=== PATIENT | male | born 1950 | race African-American/Black ===

== ENCOUNTER → 2016-04-24 | Outpatient (CLI) | payer OTHER ==
[2016-04-24 12:39] LABS: Basophils # (auto) 0 uL; Basophils % (auto) 0.5 % (0.0-2.0); Eosinophils # (auto) 0.2 uL; Eosinophils % (auto) 3.9 % (0.0-7.0); Hematocrit 44.8 % (41.0-53.0); Hemoglobin 14.8 g/dL (13.5-17.5); Lymphocytes # (auto) 1.5 uL; Lymphocytes % (auto) 32.7 % (10.0-50.0); Mean Corpuscular Hemoglobin 28.6 pg (28.0-32.0); Mean Corpuscular Volume 86.7 fL (80.0-100.0); Mean Platelet Volume 7.3 fL (7.4-10.4); Monocytes # (auto) 0.4 uL; Monocytes % (auto) 7.9 % (0.0-12.0); Neutrophils # (auto) 2.6 uL; Platelet Count (auto) 286 10^3/uL (140-450); White Blood Cell 4.7 10^3/uL (4.4-10.8)
[2016-04-24 12:59] LABS: BUN/Creatinine Ratio 9.2; Calcium 9.1 mg/dL (8.5-10.1); Potassium 3.9 mmol/L (3.5-5.1)
[2016-04-24 13:10] LABS: INR 1.11 (0.9-1.15); Prothrombin Time 11.4 sec (9.37-12.3)
[2016-04-24 13:28] LABS: Urine Bilirubin Negative (Negative); Urine Blood Negative /uL (Negative); Urine Color Yellow (Yellow); Urine Glucose Normal (Normal); Urine Ketone Negative (Negative); Urine Nitrite Negative (Negative); Urine RBC 3 /hpf (0 - 3); Urine Urobilinogen Normal (Negative); Urine pH 7.5 (5.0-8.0)
== END | disposition home or self-care (01) ==
LOC: LAB 12:20
DX: Z01.818 Encounter for other preprocedural examination (principal)
CPT/HCPCS: 36415; 80048; 81001; 85025; 85610; 85730

== ENCOUNTER → 2016-06-15 | Outpatient (CLI) | payer OTHER ==
[2016-06-15 11:51] LABS: Urine Bilirubin Negative (Negative); Urine Blood Negative /uL (Negative); Urine Color Yellow (Yellow); Urine Glucose Normal (Normal); Urine Ketone Negative (Negative); Urine Nitrite Negative (Negative); Urine RBC None Seen /hpf (0 - 3); Urine Urobilinogen Normal (Negative)
[2016-06-15 11:57] LABS: Basophils # (auto) 0 uL; Basophils % (auto) 0.7 % (0.0-2.0); Eosinophils # (auto) 0.1 uL; Eosinophils % (auto) 3.6 % (0.0-7.0); Hematocrit 42.2 % (41.0-53.0); Hemoglobin 13.6 g/dL (13.5-17.5); Lymphocytes # (auto) 1.3 uL; Lymphocytes % (auto) 33.6 % (10.0-50.0); Mean Corpuscular Hemoglobin 27.5 pg (28.0-32.0); Mean Corpuscular Hgb Conc. 32.3 g/dL (32.0-36.0); Mean Platelet Volume 7.6 fL (7.4-10.4); Monocytes # (auto) 0.3 uL; Monocytes % (auto) 7.9 % (0.0-12.0); Neutrophils % (auto) 54.2 % (37.0-80.0); Platelet Count (auto) 256 10^3/uL (140-450); Red Cell Distribution Width 14.1 % (11.6-16.0); White Blood Cell 3.8 10^3/uL (4.4-10.8)
[2016-06-15 12:37] LABS: Albumin 3.7 g/dL (3.4-5.0); BUN/Creatinine Ratio 11.8; Bilirubin, Total 0.6 mg/dL (0.2-1.0); Calcium 9.4 mg/dL (8.5-10.1); Potassium 3.5 mmol/L (3.5-5.1); Total Protein 7.4 g/dL (6.4-8.2)
== END | disposition home or self-care (01) ==
LOC: LAB 11:18
DX: E11.42 Type 2 diabetes mellitus with diabetic polyneuropathy (principal); Z12.11 Encounter for screening for malignant neoplasm of colon; Z12.5 Encounter for screening for malignant neoplasm of prostate
CPT/HCPCS: 36415; 80053; 80061; 81001; 82043; 83036; 84153; 84443; 85025

== ENCOUNTER → 2016-09-21 | Outpatient (CLI) | payer OTHER | END | disposition home or self-care (01) | LOC: LAB 10:00 | PROVIDERS: ATTEND Physician Assistant | DX: L82.1 Other seborrheic keratosis (principal) ==

== ENCOUNTER → 2017-02-26 | Outpatient (CLI) | payer OTHER ==
[2017-02-26 13:50] LABS: Basophils # (auto) 0 uL; Basophils % (auto) 0.9 % (0.0-2.0); Eosinophils # (auto) 0.1 uL; Eosinophils % (auto) 3.1 % (0.0-7.0); Hematocrit 46.7 % (41.0-53.0); Hemoglobin 15.5 g/dL (13.5-17.5); Lymphocytes # (auto) 1.2 uL; Lymphocytes % (auto) 27.2 % (10.0-50.0); Mean Corpuscular Hemoglobin 29.4 pg (28.0-32.0); Mean Corpuscular Hgb Conc. 33.3 g/dL (32.0-36.0); Mean Corpuscular Volume 88.5 fL (80.0-100.0); Monocytes # (auto) 0.4 uL; Monocytes % (auto) 8.7 % (0.0-12.0); Neutrophils # (auto) 2.7 uL; Neutrophils % (auto) 60.1 % (37.0-80.0); Nucleated Red Blood Cells % 0.1 %; Platelet Count (auto) 296 10^3/uL (140-450); Red Blood Cells 5.28 10^6/uL (4.5-5.90); Red Cell Distribution Width 13.8 % (11.8-14.3); White Blood Cell 4.4 10^3/uL (4.4-10.8)
[2017-02-26 13:59] LABS: Urine Bacteria FEW /hpf (None Seen); Urine Blood Negative /uL (Negative); Urine Mucus FEW (None Seen); Urine Specific Gravity 1.031 (1.001-1.035); Urine WBC 2 /hpf (0 - 3)
[2017-02-26 15:59] LABS: Albumin 4.2 g/dL (3.4-5.0); BUN/Creatinine Ratio 13.6; Bilirubin, Total 0.6 mg/dL (0.2-1.0); Calcium 9.7 mg/dL (8.5-10.1); Total Protein 8.2 g/dL (6.4-8.2)
[2017-02-26 22:24] LABS: Potassium 4.1 mmol/L (3.5-5.1)
== END | disposition home or self-care (01) ==
LOC: LAB 13:18
PROVIDERS: ATTEND Family Medicine
DX: E11.9 Type 2 diabetes mellitus without complications (principal); E78.5 Hyperlipidemia, unspecified
CPT/HCPCS: 36415; 80053; 80061; 81001; 82043; 83036; 84153; 84443; 85025

== ENCOUNTER → 2017-04-19 | Outpatient (CLI) | payer OTHER ==
[2017-04-19 11:28] LABS: Basophils # (auto) 0 uL; Basophils % (auto) 0.7 % (0.0-2.0); Eosinophils # (auto) 0.1 uL; Eosinophils % (auto) 2.3 % (0.0-7.0); Hematocrit 46.1 % (41.0-53.0); Hemoglobin 15.4 g/dL (13.5-17.5); Lymphocytes # (auto) 1.1 uL; Lymphocytes % (auto) 28.9 % (10.0-50.0); Mean Corpuscular Hemoglobin 29.3 pg (28.0-32.0); Mean Corpuscular Hgb Conc. 33.4 g/dL (32.0-36.0); Mean Corpuscular Volume 87.9 fL (80.0-100.0); Monocytes # (auto) 0.3 uL; Neutrophils # (auto) 2.2 uL; Neutrophils % (auto) 59.1 % (37.0-80.0); Nucleated Red Blood Cells % 0.1 %; Platelet Count (auto) 228 10^3/uL (140-450); Red Blood Cells 5.25 10^6/uL (4.5-5.90); Red Cell Distribution Width 13.9 % (11.8-14.3); White Blood Cell 3.7 10^3/uL (4.4-10.8)
== END | disposition home or self-care (01) ==
LOC: LAB 10:44
PROVIDERS: ATTEND Psychiatry & Neurology Neurology
DX: E61.1 Iron deficiency (principal)
CPT/HCPCS: 36415; 82728; 83540; 85025

== ENCOUNTER → 2017-07-01 | Outpatient (CLI) | payer OTHER ==
[2017-07-01 16:52] LABS: Amphetamine Screen, Urine NEGATIVE (NEGATIVE); Barbiturate Scree,Urine NEGATIVE (NEGATIVE); Benzodiazephine Screen, Urine NEGATIVE (NEGATIVE); Cannabinoid Screen, Urine POSITIVE (NEGATIVE); Cocaine Screen, Urine NEGATIVE (NEGATIVE); Opiate Scree,Urine POSITIVE (NEGATIVE); Phencyclidine Screen, Urine NEGATIVE (NEGATIVE)
== END | disposition home or self-care (01) ==
LOC: LAB 15:02
PROVIDERS: ATTEND Psychiatry & Neurology Neurology
DX: G89.4 Chronic pain syndrome (principal); E78.5 Hyperlipidemia, unspecified; E11.9 Type 2 diabetes mellitus without complications; I10 Essential (primary) hypertension
CPT/HCPCS: 80307

== ENCOUNTER → 2017-08-11 | Outpatient (CLI) | payer OTHER ==
[2017-08-11 13:28] LABS: Basophils # (auto) 0 uL; Basophils % (auto) 1.4 % (0.0-2.0); Eosinophils # (auto) 0.1 uL; Eosinophils % (auto) 3.8 % (0.0-7.0); Hemoglobin 14.3 g/dL (13.5-17.5); Lymphocytes # (auto) 1.1 uL; Lymphocytes % (auto) 32.5 % (10.0-50.0); Mean Corpuscular Hemoglobin 29.2 pg (28.0-32.0); Mean Corpuscular Volume 86.1 fL (80.0-100.0); Monocytes # (auto) 0.4 uL; Monocytes % (auto) 10.7 % (0.0-12.0); Neutrophils # (auto) 1.8 uL; Neutrophils % (auto) 51.6 % (37.0-80.0); Nucleated Red Blood Cells % 0.1 %; Platelet Count (auto) 240 10^3/uL (140-450); Red Blood Cells 4.88 10^6/uL (4.5-5.90); Red Cell Distribution Width 13.6 % (11.8-14.3); White Blood Cell 3.4 10^3/uL (4.4-10.8)
[2017-08-11 13:54] LABS: Urine Bacteria NONE SEEN /hpf (None Seen); Urine Blood Negative /uL (Negative); Urine Mucus FEW (None Seen); Urine Specific Gravity 1.029 (1.001-1.035); Urine WBC 1 /hpf (0 - 3)
[2017-08-11 14:02] LABS: Albumin 3.7 g/dL (3.4-5.0); BUN/Creatinine Ratio 12.6; Bilirubin, Total 0.4 mg/dL (0.2-1.0); Calcium 9.1 mg/dL (8.5-10.1); Potassium 3.7 mmol/L (3.5-5.1); Total Protein 7.5 g/dL (6.4-8.2)
== END | disposition home or self-care (01) ==
LOC: LAB 13:00
PROVIDERS: ATTEND Nurse Practitioner
DX: E11.21 Type 2 diabetes mellitus with diabetic nephropathy (principal); E78.5 Hyperlipidemia, unspecified
CPT/HCPCS: 36415; 80053; 80061; 81001; 82043; 83036; 85025

== ENCOUNTER → 2017-11-19 | Outpatient (CLI) | payer OTHER ==
[2017-11-19 13:02] LABS: Basophils # (auto) 0 uL; Eosinophils # (auto) 0.2 uL; Eosinophils % (auto) 5.5 % (0.0-7.0); Hematocrit 43.6 % (41.0-53.0); Hemoglobin 14.8 g/dL (13.5-17.5); Lymphocytes # (auto) 1.3 uL; Mean Corpuscular Hemoglobin 29.8 pg (28.0-32.0); Mean Corpuscular Volume 87.8 fL (80.0-100.0); Monocytes # (auto) 0.4 uL; Monocytes % (auto) 9.6 % (0.0-12.0); Neutrophils # (auto) 2.1 uL; Neutrophils % (auto) 51.9 % (37.0-80.0); Nucleated Red Blood Cells % 0.1 %; Platelet Count (auto) 215 10^3/uL (140-450); Red Blood Cells 4.97 10^6/uL (4.5-5.90); Red Cell Distribution Width 13.7 % (11.8-14.3); White Blood Cell 4.1 10^3/uL (4.4-10.8)
[2017-11-19 17:57] LABS: Chloride 107 mmol/L (98-107); Potassium 3.8 mmol/L (3.5-5.1); Sodium 143 mmol/L (136-145)
[2017-11-19 18:02] LABS: Albumin 3.5 g/dL (3.4-5.0); Anion Gap 11 (5-15); BUN/Creatinine Ratio 8.8; Blood Urea Nitrogen 7 mg/dL (7-18); Calcium 8.3 mg/dL (8.5-10.1); Carbon Dioxide 25 mmol/L (21-32); GFR African American 123 mL/min; GFR Non-African American 102 mL/min; Glucose 107 mg/dL (74-106)
[2017-11-19 18:22] LABS: Alanine Aminotransferase 22 U/L (16-61); Alkaline Phosphatase 96 U/L (45-117); Aspartate Aminotransferase 13 U/L (15-37); Bilirubin, Total 0.5 mg/dL (0.2-1.0); Total Protein 7.3 g/dL (6.4-8.2)
[2017-11-22 19:07] LABS: Cholesterol 88 mg/dL (< 200)
[2017-11-22 19:08] LABS: HDL Cholesterol 41 mg/dL (40-59); LDL Cholesterol 45 mg/dL (< 100); Triglycerides 84 mg/dL (< 150)
== END | disposition home or self-care (01) ==
LOC: LAB 12:13
PROVIDERS: ATTEND Nurse Practitioner
DX: E11.9 Type 2 diabetes mellitus without complications (principal); E78.5 Hyperlipidemia, unspecified; I10 Essential (primary) hypertension
CPT/HCPCS: 36415; 80053; 80061; 83036; 85025

== ENCOUNTER → 2018-02-14 | Outpatient (CLI) | payer OTHER, MEDICARE ==
[2018-02-14 12:45] LABS: Basophils # (auto) 0 uL; Basophils % (auto) 0.7 % (0.0-2.0); Eosinophils # (auto) 0.1 uL; Eosinophils % (auto) 2.4 % (0.0-7.0); Hematocrit 48.2 % (41.0-53.0); Lymphocytes # (auto) 1.1 uL; Lymphocytes % (auto) 28.6 % (10.0-50.0); Mean Corpuscular Hemoglobin 29.3 pg (28.0-32.0); Mean Corpuscular Hgb Conc. 33.3 g/dL (32.0-36.0); Mean Corpuscular Volume 88.1 fL (80.0-100.0); Monocytes # (auto) 0.3 uL; Monocytes % (auto) 8.2 % (0.0-12.0); Neutrophils # (auto) 2.3 uL; Neutrophils % (auto) 60.1 % (37.0-80.0); Platelet Count (auto) 267 10^3/uL (140-450); Red Blood Cells 5.47 10^6/uL (4.5-5.90); Red Cell Distribution Width 13.8 % (11.8-14.3); White Blood Cell 3.8 10^3/uL (4.4-10.8)
[2018-02-14 13:07] LABS: Albumin 4.1 g/dL (3.4-5.0); Calcium 9.7 mg/dL (8.5-10.1); Potassium 4.3 mmol/L (3.5-5.1)
[2018-02-14 13:12] LABS: BUN/Creatinine Ratio 8.9; Bilirubin, Total 0.6 mg/dL (0.2-1.0); Total Protein 8.4 g/dL (6.4-8.2); Urine Bacteria NONE SEEN /hpf (None Seen); Urine Blood Negative /uL (Negative); Urine WBC 1 /hpf (0 - 3)
== END | disposition home or self-care (01) ==
LOC: LAB 11:52
PROVIDERS: ATTEND Nurse Practitioner
DX: E78.5 Hyperlipidemia, unspecified (principal); I10 Essential (primary) hypertension; E11.9 Type 2 diabetes mellitus without complications; M19.90 Unspecified osteoarthritis, unspecified site
CPT/HCPCS: 36415; 80053; 81001; 82043; 82306; 83036; 84153; 85025

== ENCOUNTER → 2018-06-17 | Outpatient (CLI) | payer OTHER, MEDICARE ==
[2018-06-17 14:26] LABS: Urine Bacteria NONE SEEN /hpf (None Seen); Urine Blood Negative /uL (Negative); Urine Mucus FEW (None Seen); Urine Specific Gravity 1.019 (1.001-1.035); Urine WBC 1 /hpf (0 - 3)
[2018-06-17 14:27] LABS: Basophils # (auto) 0 uL; Basophils % (auto) 0.8 % (0.0-2.0); Eosinophils # (auto) 0.1 uL; Eosinophils % (auto) 1.9 % (0.0-7.0); Hematocrit 42.8 % (41.0-53.0); Hemoglobin 14.3 g/dL (13.5-17.5); Lymphocytes # (auto) 1.2 uL; Lymphocytes % (auto) 29.2 % (10.0-50.0); Mean Corpuscular Hemoglobin 29.5 pg (28.0-32.0); Mean Corpuscular Hgb Conc. 33.4 g/dL (32.0-36.0); Mean Corpuscular Volume 88.2 fL (80.0-100.0); Monocytes # (auto) 0.4 uL; Monocytes % (auto) 9.8 % (0.0-12.0); Neutrophils # (auto) 2.3 uL; Neutrophils % (auto) 58.3 % (37.0-80.0); Nucleated Red Blood Cells % 0.1 %; Platelet Count (auto) 224 10^3/uL (140-450); Red Blood Cells 4.85 10^6/uL (4.5-5.90); Red Cell Distribution Width 14.2 % (11.8-14.3)
[2018-06-17 15:02] LABS: Calcium 9.1 mg/dL (8.5-10.1); Potassium 3.4 mmol/L (3.5-5.1)
[2018-06-17 15:04] LABS: BUN/Creatinine Ratio 7.9
[2018-06-17 15:05] LABS: Bilirubin, Total 0.5 mg/dL (0.2-1.0); Total Protein 7.5 g/dL (6.4-8.2)
== END | disposition home or self-care (01) ==
LOC: LAB 13:42
PROVIDERS: ATTEND Nurse Practitioner
DX: E78.5 Hyperlipidemia, unspecified (principal); E11.9 Type 2 diabetes mellitus without complications
CPT/HCPCS: 36415; 80053; 80061; 81001; 82043; 82306; 82607; 83036; 84443; 85025

== ENCOUNTER → 2018-08-08 | Outpatient (CLI) | payer OTHER, MEDICARE | END | disposition home or self-care (01) | LOC: LAB 15:28 | PROVIDERS: ATTEND Nurse Practitioner | DX: E11.9 Type 2 diabetes mellitus without complications (principal); E78.5 Hyperlipidemia, unspecified | CPT/HCPCS: 82043 ==

== ENCOUNTER → 2018-08-16 | Outpatient (CLI) | payer OTHER, MEDICARE | END | disposition home or self-care (01) | LOC: LAB 16:26 | PROVIDERS: ATTEND Nurse Practitioner | DX: E11.9 Type 2 diabetes mellitus without complications (principal); E78.5 Hyperlipidemia, unspecified | CPT/HCPCS: 82270 ==

== ENCOUNTER → 2019-01-23 | Day surgery (SDC) | payer OTHER ==
[2019-01-19 15:01] LABS: Urine Bacteria None Seen /hpf (None Seen)
[2019-01-19 15:57] LABS: INR 1.05 (0.9-1.15); Partial Thromboplastin Time 30.3 sec (23.64-32.05)
[2019-01-19 16:03] LABS: Basophils # (auto) 0 uL; Basophils % (auto) 0.5 % (0.0-2.0); Eosinophils # (auto) 0.2 uL; Eosinophils % (auto) 3.8 % (0.0-7.0); Hematocrit 44.8 % (41.0-53.0); Hemoglobin 14.7 g/dL (13.5-17.5); Lymphocytes # (auto) 1.2 uL; Lymphocytes % (auto) 29.3 % (10.0-50.0); Mean Corpuscular Hemoglobin 28.9 pg (28.0-32.0); Mean Corpuscular Hgb Conc. 32.9 g/dL (32.0-36.0); Mean Corpuscular Volume 87.9 fL (80.0-100.0); Monocytes # (auto) 0.4 uL; Monocytes % (auto) 9.5 % (0.0-12.0); Neutrophils # (auto) 2.3 uL; Neutrophils % (auto) 56.9 % (37.0-80.0); Nucleated Red Blood Cells % 0.1 %; Platelet Count (auto) 274 10^3/uL (140-450); Red Cell Distribution Width 14.5 % (11.8-14.3)
[2019-01-19 16:07] LABS: Albumin 3.9 g/dL (3.4-5.0); Calcium 9.2 mg/dL (8.5-10.1); Potassium 3.9 mmol/L (3.5-5.1)
[2019-01-19 16:10] LABS: Bilirubin, Total 0.5 mg/dL (0.2-1.0); Total Protein 7.6 g/dL (6.4-8.2)
[2019-01-19 17:27] LABS: Urine Specific Gravity 1.012 (1.001-1.035)
[2019-01-19 17:28] LABS: Urine Blood Negative /uL (Negative)
[~2019-01-23] VITALS: Ht 175.3 cm; Wt 79.4 kg
[~2019-01-23] MED LIST: ACCU-CHEK COMFORT CURVE STRIP VI ONE; AMLO10TA13 PO; ASPI-404 PO; ATEN100T PO; ATOR1TAB PO; BACL10TA PO; ERGO1CAP23 PO; ESMOLOL HCL 10 ML IV ONE; FURO1TAB31 PO; GABA300C10 PO; GLYCOPYRROLATE 0.2 MG/ML 1ML VIAL ONE; HYDR-4833 PO; HYDR50TA15 PO; LACT10SO70 PO; LIDOCAINE 2% (LOCAL ANESTH.) PF 5ml SDV ONE; LISI40TA PO; METF-372 PO; METO-169 PO; METOCLOPRAMIDE HCL 5MG/ml INJ 2ml VIAL ONE; MIDAZOLAM HCL 1MG/1ML-2 ML VIAL ONE; PIOG1TAB36 PO; POTA1TAB61 PO; PROPOFOL 10 MG/ML 20 ML IV ONE; TAMS0.4C36 PO; TRIA75TA55 PO; diphenhdrAMINE HCL 50 MG/1 ML VL ONE
[2019-01-23 11:44] VITALS: BP 159/95
== END | disposition home or self-care (01) ==
LOC: GI 08:54
PROVIDERS: ATTEND Internal Medicine Gastroenterology
DX: Z12.11 Encounter for screening for malignant neoplasm of colon (principal); D12.5 Benign neoplasm of sigmoid colon; K64.8 Other hemorrhoids; K57.30 Diverticulosis of large intestine without perforation or abscess without bleeding; I10 Essential (primary) hypertension; K21.9 Gastro-esophageal reflux disease without esophagitis; E11.40 Type 2 diabetes mellitus with diabetic neuropathy, unspecified; F17.210 Nicotine dependence, cigarettes, uncomplicated; Z79.84 Long term (current) use of oral hypoglycemic drugs; Z79.82 Long term (current) use of aspirin; Z79.899 Other long term (current) drug therapy
CPT/HCPCS: 36415; 45380; 45385; 80053; 81001; 82962; 85025; 85610; 85730; 88305; 93005; J1200; J2001; J2250; J2704; J2765; J7030

== ENCOUNTER → 2019-03-06 | Outpatient (CLI) | payer OTHER ==
[~2019-03-06] MED LIST changes: -ACCU-CHEK COMFORT CURVE STRIP VI ONE; -ESMOLOL HCL 10 ML IV ONE; -GLYCOPYRROLATE 0.2 MG/ML 1ML VIAL ONE; -LIDOCAINE 2% (LOCAL ANESTH.) PF 5ml SDV ONE; -METOCLOPRAMIDE HCL 5MG/ml INJ 2ml VIAL ONE; -MIDAZOLAM HCL 1MG/1ML-2 ML VIAL ONE; -PROPOFOL 10 MG/ML 20 ML IV ONE; -diphenhdrAMINE HCL 50 MG/1 ML VL ONE
[2019-03-06 11:35] LABS: Basophils # (auto) 0 uL; Basophils % (auto) 0.6 % (0.0-2.0); Eosinophils # (auto) 0.2 uL; Hematocrit 43.5 % (41.0-53.0); Hemoglobin 14.3 g/dL (13.5-17.5); Lymphocytes # (auto) 0.9 uL; Lymphocytes % (auto) 21.4 % (10.0-50.0); Mean Corpuscular Hemoglobin 28.9 pg (28.0-32.0); Mean Corpuscular Hgb Conc. 32.9 g/dL (32.0-36.0); Mean Corpuscular Volume 87.9 fL (80.0-100.0); Monocytes # (auto) 0.4 uL; Monocytes % (auto) 9.4 % (0.0-12.0); Neutrophils # (auto) 2.6 uL; Neutrophils % (auto) 64.6 % (37.0-80.0); Platelet Count (auto) 258 10^3/uL (140-450); Red Blood Cells 4.94 10^6/uL (4.5-5.90); Red Cell Distribution Width 14.2 % (11.8-14.3); White Blood Cell 4.1 10^3/uL (4.4-10.8)
[2019-03-06 11:42] LABS: Urine Bacteria NONE SEEN /hpf (None Seen); Urine Blood Negative /uL (Negative); Urine Mucus FEW (None Seen); Urine Specific Gravity 1.023 (1.001-1.035); Urine WBC 1 /hpf (0 - 3)
[2019-03-06 12:11] LABS: Potassium 3.7 mmol/L (3.5-5.1)
[2019-03-06 12:18] LABS: Free T4 (Free Thyroxine) 1.27 ng/dL (0.89-1.76); Prostate Specific Antigen 1.83 ng/mL (0.0-4.0)
[2019-03-06 12:21] LABS: Albumin 3.9 g/dL (3.4-5.0); BUN/Creatinine Ratio 14.9; Bilirubin, Total 0.4 mg/dL (0.2-1.0); Calcium 9.3 mg/dL (8.5-10.1); Total Protein 8.1 g/dL (6.4-8.2)
== END | disposition home or self-care (01) ==
LOC: LAB 10:55
PROVIDERS: ATTEND Internal Medicine
DX: E11.22 Type 2 diabetes mellitus with diabetic chronic kidney disease (principal); N18.9 Chronic kidney disease, unspecified
CPT/HCPCS: 36415; 80053; 80061; 81001; 82043; 82607; 83036; 84153; 84439; 84443; 85025

== ENCOUNTER 2019-05-04 17:45 | Emergency (ER) | payer OTHER ==
[2019-05-04 18:05] VITALS: BP 133/57
[2019-05-04] MEDS ORDERED: ACETAMINOPHEN 500 MG TAB PO ONE (18:45)
[2019-05-04] MEDS ORDERED: HYDROcodone-ACET 5/325MG TAB PO ONE (19:00)
== END 2019-05-04 19:12 | disposition home or self-care (01) ==
LOC: ER 17:45
DX: S93.402A Sprain of unspecified ligament of left ankle, initial encounter (principal); S39.012A Strain of muscle, fascia and tendon of lower back, initial encounter; G89.29 Other chronic pain; M54.5 Low back pain; M70.22 Olecranon bursitis, left elbow; E11.9 Type 2 diabetes mellitus without complications; I10 Essential (primary) hypertension; W19.XXXA Unspecified fall, initial encounter; Y93.9 Activity, unspecified; Y99.8 Other external cause status; Y92.89 Other specified places as the place of occurrence of the external cause
CPT/HCPCS: 72100; 73080; 73610; 73630; 82962; 93005

== ENCOUNTER 2019-05-09 16:44 | Inpatient (IN) | payer OTHER ==
[~2019-05-09] VITALS: Ht 170.2 cm; Wt 78.5 kg
[2019-05-09] MEDS ORDERED: IPRATROPIUM BROM 0.5 MG/2.5ML INH SOL NEB ONE ×3 (17:15→18:45)
[2019-05-09] MEDS ORDERED: ALBUTEROL SULF 2.5 MG/0.5ML(0.5%) NEB SOLN NEB ONE ×3 (17:15→18:45)
[2019-05-09] MEDS ORDERED: ALBUTEROL SULF 2.5 MG/0.5ML(0.5%) NEB SOLN ONE (17:21)
[2019-05-09] MEDS ORDERED: methylPREDNISolone SOD SUCC 125 MG/2 ML VL IV ONE (17:45)
[2019-05-09 17:47] LABS: Basophils # (auto) 0 10 ^3/uL (0-0.2); Basophils % (auto) 0.9 % (0.0-2.0); Eosinophils # (auto) 0.2 10 ^3/uL (0-0.8); Eosinophils % (auto) 5.1 % (0.0-7.0); Hematocrit 43.9 % (41.0-53.0); Hemoglobin 14.7 g/dL (13.5-17.5); Lymphocytes # (auto) 1.3 10 ^3/uL (0.4-5.4); Lymphocytes % (auto) 29.1 % (10.0-50.0); Mean Corpuscular Hemoglobin 29.2 pg (28.0-32.0); Mean Corpuscular Hgb Conc. 33.5 g/dL (32.0-36.0); Mean Corpuscular Volume 87.3 fL (80.0-100.0); Monocytes # (auto) 0.5 10 ^3/uL (0-1.3); Monocytes % (auto) 10.5 % (0.0-12.0); Neutrophils # (auto) 2.4 10 ^3/uL (1.6-8.6); Neutrophils % (auto) 54.4 % (37.0-80.0); Nucleated Red Blood Cells % 0.1 %; Platelet Count (auto) 223 10^3/uL (140-450); Red Blood Cells 5.04 10^6/uL (4.5-5.90); Red Cell Distribution Width 13.9 % (11.8-14.3); White Blood Cell 4.4 10^3/uL (4.4-10.8)
[2019-05-09 18:03] LABS: Albumin 3.6 g/dL (3.4-5.0); Anion Gap 6 (5-15); Aspartate Aminotransferase 19 U/L (15-37); BUN/Creatinine Ratio 15.6; Blood Urea Nitrogen 14 mg/dL (7-18); Calcium 9.1 mg/dL (8.5-10.1); Carbon Dioxide 27 mmol/L (21-32); Chloride 104 mmol/L (98-107); GFR African American 107 mL/min; GFR Non-African American 89 mL/min; Glucose 99 mg/dL (74-106); Potassium 3.8 mmol/L (3.5-5.1); Sodium 137 mmol/L (136-145)
[2019-05-09 18:08] LABS: Alanine Aminotransferase 27 U/L (16-61); Alkaline Phosphatase 87 U/L (45-117); Bilirubin, Total 0.5 mg/dL (0.2-1.0); Total Protein 7.9 g/dL (6.4-8.2)
[2019-05-09] MEDS ORDERED: FUROSEMIDE 100 MG/10ML VIAL IV ONE (18:30)
[2019-05-09] MEDS ORDERED: FUROSEMIDE INJECTION 10 ML ONE (18:31)
[2019-05-09] MEDS ORDERED: cefTRIAXone 1GM/50ML D5W 50 ML IV ONE (18:45)
[2019-05-09] MEDS ORDERED: AZITHROMYCIN 500MG/ 250ML 250 ML IV ONE (19:30)
[2019-05-09] MEDS ORDERED: ACETAMINOPHEN 500 MG TAB PO PRN (20:00)
[2019-05-09] MEDS ORDERED: MORPHINE SULF INJ 2 MG/ML SYRINGE 1ML IV PRN ×2 (20:00)
[2019-05-09] MEDS ORDERED: HYDROcodone-ACET 5/325MG TAB PO PRN (20:00)
[2019-05-09] MEDS ORDERED: DEXTROSE (50%) 50ML SYRG IV PRN (20:00)
[2019-05-09] MEDS ORDERED: NITROGLYCERIN 0.4 MG SL TAB SL PRN (20:00)
[2019-05-09 20:21] VITALS: BP 114/84
--- NOTE | 2019-05-09 21:20 | NUR ---
Telemetry admit from ER [facility] Mary Anne admitted to Telemetry unit after SBAR received. Patient oriented to JACK NUR, RN primary RN, unit, room, bed, and unit policies regarding patient care and visiting hours. Patient now on continuous telemetry monitoring, tele box # 13 and telemetry reading on arrival to unit is paced at 83. Patient placed on bedside oxygen, weighed by bed scale and encouraged to call if they need something. All questions and concerns addressed, patient verbalized understanding.
[2019-05-09 22:00] VITALS: BP 138/60
[2019-05-09] MEDS: NYSTATIN (MOUTH-THROAT) 500,000 UNITS/5 ML SUSP MT SCH (22:09)
[2019-05-09] MEDS: GABAPENTIN 300 MG CAP PO SCH (22:09)
[2019-05-09] MEDS: methylPREDNISolone SOD SUCC 125 MG/2 ML VL IV SCH (22:09)
[2019-05-09] MEDS: BUDESONIDE (INHALATION) 0.5 MG/2 ML NEB NEB SCH (22:15)
[2019-05-09] MEDS: IPRATROPIUM BROM 0.5 MG/2.5ML INH SOL NEB SCH (22:15)
[2019-05-09] MEDS: ALBUTEROL SULF 2.5 MG/0.5ML(0.5%) NEB SOLN NEB SCH (22:15)
[2019-05-09] MEDS: ACCU-CHEK COMFORT CURVE STRIP VI SCH (22:16)
[2019-05-09] MEDS: InsuLIN REG 1unit/0.01ml Soln (100units/ml) SC SCH (22:22)
[2019-05-09 22:51] VITALS: BP 138/60
--- NOTE | 2019-05-10 00:10 | NUR ---
Hospitalist Patient is requesting sleeping aid. Hospitalist paged.
[2019-05-10] MEDS ORDERED: PRAM0.252 PO (02:24)
[2019-05-10] MEDS ORDERED: BUPR100T14 PO (02:24)
[2019-05-10 04:54] VITALS: BP 140/81
[2019-05-10] MEDS: NYSTATIN (MOUTH-THROAT) 500,000 UNITS/5 ML SUSP MT SCH ×4 (06:18→22:14)
[2019-05-10] MEDS: ACCU-CHEK COMFORT CURVE STRIP VI SCH ×4 (06:19→22:14)
[2019-05-10] MEDS: GABAPENTIN 300 MG CAP PO SCH ×3 (06:19→22:14)
[2019-05-10] MEDS: InsuLIN REG 1unit/0.01ml Soln (100units/ml) SC SCH ×4 (06:20→22:18)
[2019-05-10] MEDS: ALBUTEROL SULF 2.5 MG/0.5ML(0.5%) NEB SOLN NEB SCH ×5 (06:48→22:09)
[2019-05-10] MEDS: IPRATROPIUM BROM 0.5 MG/2.5ML INH SOL NEB SCH ×5 (06:48→22:09)
[2019-05-10 07:00] LABS: Basophils # (auto) 0 10 ^3/uL (0-0.2); Basophils % (auto) 0.2 % (0.0-2.0); Eosinophils # (auto) 0 10 ^3/uL (0-0.8); Eosinophils % (auto) 0.1 % (0.0-7.0); Hematocrit 41.6 % (41.0-53.0); Lymphocytes # (auto) 0.4 10 ^3/uL (0.4-5.4); Lymphocytes % (auto) 13.8 % (10.0-50.0); Mean Corpuscular Hgb Conc. 33.6 g/dL (32.0-36.0); Mean Corpuscular Volume 86.2 fL (80.0-100.0); Monocytes # (auto) 0.1 10 ^3/uL (0-1.3); Monocytes % (auto) 1.9 % (0.0-12.0); Neutrophils # (auto) 2.5 10 ^3/uL (1.6-8.6); Nucleated Red Blood Cells % 0.1 %; Platelet Count (auto) 240 10^3/uL (140-450); Red Blood Cells 4.82 10^6/uL (4.5-5.90); Red Cell Distribution Width 13.8 % (11.8-14.3)
[2019-05-10 07:17] LABS: Calcium 9.2 mg/dL (8.5-10.1); Potassium 3.5 mmol/L (3.5-5.1)
[2019-05-10 07:20] LABS: BUN/Creatinine Ratio 18.3
[2019-05-10 08:00] VITALS: BP 126/81
--- NOTE | 2019-05-10 08:00 | NUR ---
ASSESSMENT NOTE PT IS ALERT ORIENTED X4, RESTING IN BED COMFORTABLY, NO DISTRESS NOTED, OCCASIONAL NON PRODUCTIVE COUGH NOTED, PT IS ABLE TO SELF REPOSITION AND VERBALIS HIS DEMANDS, AMBULATE TO BATHROOM NEEDED, PAIN 0/10, CALL LIGHT WITHIN REACH
[2019-05-10] MEDS: ASPirin-EC 81 mg tab PO SCH (08:54)
[2019-05-10] MEDS: cefTRIAXone 1GM/50ML D5W 50 ML IV SCH (08:54)
[2019-05-10] MEDS: methylPREDNISolone SOD SUCC 125 MG/2 ML VL IV SCH ×2 (08:54→22:14)
[2019-05-10] MEDS: FAMOTIDINE 20 MG TAB PO SCH (08:55)
[2019-05-10] MEDS: amLODIPine BESYLATE 5 MG TAB PO SCH (08:56)
[2019-05-10] MEDS: METOPROLOL SUCCINATE XL 50 MG TAB PO SCH (08:56)
[2019-05-10 09:01] VITALS: BP 139/77
[2019-05-10] MEDS: AZITHROMYCIN 500MG/ 250ML 250 ML IV SCH (10:07)
[2019-05-10] MEDS: BUDESONIDE (INHALATION) 0.5 MG/2 ML NEB NEB SCH ×2 (10:10→18:47)
--- NOTE | 2019-05-10 12:06 | NUR ---
DR CASSIDY AT BED SIDE FOLLOWING UP ON PT WITH NEW ORDERS
[2019-05-10 13:00] VITALS: BP 147/85
--- NOTE | 2019-05-10 14:48 | NUR ---
PT IS SLEEPING, NO DISTRESS NOTED
[2019-05-10 17:17] VITALS: BP 130/82
[2019-05-10] MEDS ORDERED: TAMSULOSIN HYDROCHLORIDE 0.4 MG CAP PO SCH (18:00)
--- NOTE | 2019-05-10 18:29 | NUR ---
PT CONTINUE STABLE, CONTINUE MONITORING
--- NOTE | 2019-05-10 19:30 | NUR ---
OPENING SHIFT NOTE Assumed care of patient who is A&O x4. Currently on RA. Denies SOB. Expiratory wheezes noted throughout. Patient reports 3/10 headache. Patient to be medicated according to orders. POC discussed and patient verbalizes understanding. Bed is in low locked position with side rails up x2. Call light is within reach and patient encouraged to call for assistance when needed. Will continue to monitor for changes PRN.
[2019-05-10 21:29] VITALS: BP 141/88
[2019-05-10] MEDS ORDERED: ATORVASTATIN 20 MG TAB PO SCH (22:00)
[2019-05-11] MEDS: ONDANSETRON HCL 4 MG/2 ML VIAL IV PRN ×2 (02:43→06:48)
[2019-05-11 04:51] VITALS: BP 155/80
[2019-05-11] MEDS: ALBUTEROL SULF 2.5 MG/0.5ML(0.5%) NEB SOLN NEB SCH ×2 (06:08→10:27)
[2019-05-11] MEDS: BUDESONIDE (INHALATION) 0.5 MG/2 ML NEB NEB SCH (06:08)
[2019-05-11] MEDS: IPRATROPIUM BROM 0.5 MG/2.5ML INH SOL NEB SCH ×2 (06:08→10:27)
[2019-05-11] MEDS: NYSTATIN (MOUTH-THROAT) 500,000 UNITS/5 ML SUSP MT SCH ×2 (06:15→12:40)
[2019-05-11] MEDS: GABAPENTIN 300 MG CAP PO SCH ×2 (06:16→14:35)
[2019-05-11] MEDS: ACCU-CHEK COMFORT CURVE STRIP VI SCH ×2 (06:16→11:31)
[2019-05-11] MEDS: InsuLIN REG 1unit/0.01ml Soln (100units/ml) SC SCH ×2 (06:19→11:30)
[2019-05-11 08:00] VITALS: BP 139/77
[2019-05-11] MEDS: methylPREDNISolone SOD SUCC 125 MG/2 ML VL IV SCH (08:45)
[2019-05-11] MEDS: cefTRIAXone 1GM/50ML D5W 50 ML IV SCH (08:45)
[2019-05-11] MEDS: METOPROLOL SUCCINATE XL 50 MG TAB PO SCH (08:46)
[2019-05-11] MEDS: FAMOTIDINE 20 MG TAB PO SCH (08:46)
[2019-05-11] MEDS: ASPirin-EC 81 mg tab PO SCH (08:46)
[2019-05-11] MEDS: amLODIPine BESYLATE 5 MG TAB PO SCH (08:47)
[2019-05-11 09:00] VITALS: BP 149/93
[2019-05-11] MEDS: AZITHROMYCIN 500MG/ 250ML 250 ML IV SCH (10:00)
--- NOTE | 2019-05-11 10:00 | NUR ---
DR CASSIDY AT BED SIDE FOLLOWING UP ON PT, WITH DISCHARGE HOME INSTRUCTION, INFORM PT TO GET READY BECAUSE HE IS GOING HOME
[2019-05-11] MEDS ORDERED: cloNIDine HCL 0.1 MG TAB PO PRN (10:45)
--- NOTE | 2019-05-11 11:30 | NUR ---
PAGE DR CASSIDY TO OBTAIN DISCHARGE ORDERS
[2019-05-11 13:08] VITALS: BP 116/77
--- NOTE | 2019-05-11 13:42 | NUR ---
assessment Patient is a 68 year old male who is alert and oriented. Patients cognitive abilities are intact. Prior to admission patient lived home with family and functioned with assistance. Per patient he will return home to his prior living arrangements post discharge and family will transport him home. Patient informed me he needs assistance with cooking. Per patient his family cooks for him. Patient informed me he has a cane for home use. Patients PCP is Dr Torres. Patient feels safe returning home on discharge. Patient has no post discharge needs identified. I informed patient he has a right to speak to a elementary school social worker regarding all care. I informed patient he has a right to participate in any and all discharge planning. Patient does not have a POA and advanced directive. I have offered patient information on POA and advanced directives. I informed the patient the advantages and benefits of having an Advanced Directive. Patient verbalized understanding and agreed to discharge plan. Addendum: 05/11/19 at 1344 by Regla AMAYA Amended: Links added.
[2019-05-11 14:24] VITALS: BP 149/93
--- NOTE | 2019-05-11 14:32 | NUR ---
PAGE DR CASSIDY AGAIN
--- NOTE | 2019-05-11 14:33 | NUR ---
DR CASSIDY DID CALL BACK WILL SEND PATIENT'S RX TO [facility] HOME [facility] AND WILL ENETER THE DISCHARGE ORDERS
--- NOTE | 2019-05-11 15:00 | NUR ---
Discharge instructions given as ordered. Encourage to follow up with PMD as instructed. All questions and concerns addressed. Patient verbalized understanding. Medication reconciliation form completed and copy given to patient. IV removed with catheter intact, pressure dressing applied. Telemetry unit returned to ICU. Patient taken to vehicle via wheelchair with all personal belongings, accompanied by staff to [facility], then wheeled to his own car . No distress noted at time of departure.
== END 2019-05-11 15:00 | disposition home or self-care (01) | DRG 191 ==
LOC: ER 16:44 → TELE 16:45 → TELE-EAST 21:23
PROVIDERS: ADMIT Nurse Practitioner Acute Care; ATTEND Internal Medicine
DX: J44.1 Chronic obstructive pulmonary disease with (acute) exacerbation (principal); B37.0 Candidal stomatitis; G89.29 Other chronic pain; I10 Essential (primary) hypertension; E78.5 Hyperlipidemia, unspecified; E11.9 Type 2 diabetes mellitus without complications; Z72.0 Tobacco use; Z86.73 Personal history of transient ischemic attack (TIA), and cerebral infarction without residual deficits; Z71.6 Tobacco abuse counseling
CPT/HCPCS: 36415; 71045; 71250; 80048; 80053; 82962; 83036; 83880; 84484; 85025; 87804; 93005; 94640; G0378; J0696; J1815; J2405

== ENCOUNTER 2019-07-01 23:07 | Inpatient (IN) | payer BC, MEDICARE, OTHER ==
[~2019-07-01] VITALS: Ht 175.3 cm; Wt 78.2 kg
[~2019-07-01 23:07] MED LIST changes: -ASPI-404 PO; +ASPI-543 PO; +BUPR100T14 PO; -LISI40TA PO; +LISI40TA11 PO; +PRAM0.252 PO
[2019-07-01 23:53] LABS: Basophils # (auto) 0.1 10 ^3/uL (0-0.2); Basophils % (auto) 1.3 % (0.0-2.0); Eosinophils # (auto) 0.2 10 ^3/uL (0-0.8); Eosinophils % (auto) 3.5 % (0.0-7.0); Hematocrit 42.2 % (41.0-53.0); Hemoglobin 13.7 g/dL (13.5-17.5); Lymphocytes # (auto) 1.2 10 ^3/uL (0.4-5.4); Lymphocytes % (auto) 21.8 % (10.0-50.0); Mean Corpuscular Hemoglobin 28.5 pg (28.0-32.0); Mean Corpuscular Hgb Conc. 32.5 g/dL (32.0-36.0); Mean Corpuscular Volume 87.8 fL (80.0-100.0); Monocytes # (auto) 0.5 10 ^3/uL (0-1.3); Monocytes % (auto) 9.9 % (0.0-12.0); Neutrophils # (auto) 3.5 10 ^3/uL (1.6-8.6); Neutrophils % (auto) 63.5 % (37.0-80.0); Platelet Count (auto) 232 10^3/uL (140-450); Red Blood Cells 4.81 10^6/uL (4.5-5.90); Red Cell Distribution Width 15.1 % (11.8-14.3); White Blood Cell 5.4 10^3/uL (4.4-10.8)
[2019-07-02 00:07] LABS: INR 1.01 (0.9-1.15); Partial Thromboplastin Time 28.2 sec (23.64-32.05)
[2019-07-02 00:19] LABS: Alanine Aminotransferase 22 U/L (16-61); Albumin 3.6 g/dL (3.4-5.0); Anion Gap 10 (5-15); Aspartate Aminotransferase 19 U/L (15-37); BUN/Creatinine Ratio 8.4; Blood Urea Nitrogen 37 mg/dL (7-18); Calcium 8.8 mg/dL (8.5-10.1); Carbon Dioxide 26 mmol/L (21-32); Chloride 100 mmol/L (98-107); GFR African American 17 mL/min; GFR Non-African American 14 mL/min; Glucose 114 mg/dL (74-106); Magnesium 2.6 mg/dL (1.6-2.6); Potassium 3.4 mmol/L (3.5-5.1); Sodium 136 mmol/L (136-145)
[2019-07-02 00:24] LABS: Alkaline Phosphatase 85 U/L (45-117); Bilirubin, Total 0.5 mg/dL (0.2-1.0); Total Protein 7.4 g/dL (6.4-8.2)
[2019-07-02] MEDS ORDERED: HYDROcodone-ACET 5/325MG TAB PO PRN (05:00)
[2019-07-02] MEDS ORDERED: ACETAMINOPHEN 325 MG TAB PO PRN (05:00)
[2019-07-02] MEDS ORDERED: LACTULOSE 20Gm/30ML SOLN PO PRN (05:00)
[2019-07-02] MEDS ORDERED: ONDANSETRON HCL 4 MG/2 ML VIAL IV PRN (05:00)
[2019-07-02] MEDS ORDERED: DEXTROSE (50%) 50ML SYRG IV PRN ×2 (05:00→12:00)
[2019-07-02] MEDS ORDERED: MORPHINE SULF INJ 2 MG/ML SYRINGE 1ML IV PRN (05:00)
[2019-07-02] MEDS ORDERED: DOCUSATE SOD 100 MG CAP PO PRN (05:00)
[2019-07-02] MEDS: SODIUM CHLORIDE 0.9% 1,000 ML IV SCH ×2 (05:19→22:43)
--- NOTE | 2019-07-02 05:45 | NUR ---
Telemetry admit from ER [facility] admitted to Telemetry unit after SBAR received. Patient oriented to AMELIE MICHAEL, RN primary RN, unit, room, bed, and unit policies regarding patient care and visiting hours. Patient now on continuous telemetry monitoring, tele box #75 and telemetry reading on arrival to unit is 58. Patient placed on bedside oxygen 2L via nasal cannula, weighed by bedscale and encouraged to call if they need something. All questions and concerns addressed, patient verbalized understanding.
[2019-07-02 05:57] LABS: Urine Bacteria FEW /hpf (None Seen); Urine Blood TRACE /uL (Negative); Urine Hyaline Cast FEW /lpf (0 - 2); Urine Mucus FEW (None Seen); Urine Specific Gravity 1.015 (1.001-1.035); Urine WBC 5 /hpf (0 - 3)
[2019-07-02] MEDS ORDERED: GABAPENTIN 300 MG CAP PO SCH ×2 (06:00→10:00)
[2019-07-02] MEDS ORDERED: FERR45TA7 PO (06:34)
--- NOTE | 2019-07-02 07:00 | NUR ---
Patient's Own Medications Per patient, jean Justice is to citrus picker patient's own medications at approximately 0800. At this time medications are at bedside, patient instructed not to take medications, patient verbalized understanding. Will endorse to AM nurse.
[2019-07-02 07:33] LABS: Basophils # (auto) 0 10 ^3/uL (0-0.2); Basophils % (auto) 0.7 % (0.0-2.0); Eosinophils # (auto) 0.2 10 ^3/uL (0-0.8); Eosinophils % (auto) 4.1 % (0.0-7.0); Hematocrit 42.7 % (41.0-53.0); Hemoglobin 14.1 g/dL (13.5-17.5); Lymphocytes # (auto) 1.1 10 ^3/uL (0.4-5.4); Lymphocytes % (auto) 20.4 % (10.0-50.0); Mean Corpuscular Hemoglobin 29.2 pg (28.0-32.0); Mean Corpuscular Volume 88.5 fL (80.0-100.0); Monocytes # (auto) 0.6 10 ^3/uL (0-1.3); Monocytes % (auto) 10.3 % (0.0-12.0); Neutrophils # (auto) 3.5 10 ^3/uL (1.6-8.6); Neutrophils % (auto) 64.5 % (37.0-80.0); Platelet Count (auto) 226 10^3/uL (140-450); Red Blood Cells 4.83 10^6/uL (4.5-5.90); Red Cell Distribution Width 15.2 % (11.8-14.3); White Blood Cell 5.5 10^3/uL (4.4-10.8)
--- NOTE | 2019-07-02 07:40 | NUR ---
Opening Note] Assumed pt care form NOC RN. Pt is a/ox4 with no s/s of distress or SOB. Pt is currently sitting upright in bed with no complaints at this time. Pt is currently on 2L NC. Discussed POC with pt; pending neurology consult, pt verbalized understanding. Safety measures maintained with call light within reach, bed in lowest position and side rails up. Will continue to monitor.
[2019-07-02] MEDS: ACCU-CHEK COMFORT CURVE STRIP VI SCH ×4 (07:50→22:47)
[2019-07-02] MEDS: InsuLIN REG 1unit/0.01ml Soln (100units/ml) SC SCH ×4 (07:50→22:00)
[2019-07-02 07:53] LABS: BUN/Creatinine Ratio 10.8; Calcium 9.2 mg/dL (8.5-10.1); Potassium 4.2 mmol/L (3.5-5.1)
[2019-07-02 09:00] VITALS: BP 140/69
[2019-07-02] MEDS: ASPirin-EC 81 mg tab PO SCH (09:35)
[2019-07-02] MEDS: hydrALAZINE HCL 25 MG TAB PO SCH ×2 (09:35→22:38)
[2019-07-02] MEDS: POTASSIUM CHL 10 Meq TABLET PO SCH (09:35)
[2019-07-02] MEDS: amLODIPine BESYLATE 5 MG TAB PO SCH (09:35)
[2019-07-02] MEDS: METOPROLOL SUCCINATE XL 50 MG TAB PO SCH (09:36)
[2019-07-02] MEDS: HYDROcodone-ACET 5/325MG TAB PO PRN (09:39)
[2019-07-02] MEDS ORDERED: ATENOLOL 50 MG TAB PO SCH (10:00)
[2019-07-02] MEDS ORDERED: FUROSEMIDE 40 MG TAB PO SCH (10:00)
--- NOTE | 2019-07-02 11:26 | NUR ---
Dr Iglesias at Bedside MD to see pt. Discussed POC with pt. New orders given. To call MD if D dimer is elevated. Will continue to monitor.
--- NOTE | 2019-07-02 11:28 | NUR ---
Urine Bacteria Sent to Lab
[2019-07-02] MEDS ORDERED: cefTRIAXone 1GM/50ML D5W 50 ML IV ONE (11:30)
[2019-07-02 13:00] VITALS: BP 135/73
--- NOTE | 2019-07-02 13:50 | NUR ---
ECHO at bedside
--- NOTE | 2019-07-02 16:59 | NUR ---
IV Insertion and Removal 20 G to pt's R FA inserted using clean/sterile technique. One attempt made; pt tolerated insertion well. IV to pt's L AC removed. Catheter was removed fully intact. Site is asymptomatic. Pressure was applied to site for 3 minutes with gauze and then wrapped in coban. Pt instructed to keep dressing on for 30 minutes.
[2019-07-02 17:00] VITALS: BP 131/62
[2019-07-02] MEDS: TAMSULOSIN HYDROCHLORIDE 0.4 MG CAP PO SCH (17:17)
--- NOTE | 2019-07-02 19:37 | NUR ---
Opening Shift Note Received report and assumed care of patient. Patient is awake and alert. No signs or symptoms of distress noted, patient currently denies pain. Instructed patient on plan of care and to call for assistance as needed. Will continue to monitor.
[2019-07-02 22:04] VITALS: BP 121/70
[2019-07-02] MEDS: ATORVASTATIN 20 MG TAB PO SCH (22:38)
[2019-07-02] MEDS: PRAMIPEXOLE DIHYDROCHLORIDE MO 0.25 MG TAB PO SCH (22:38)
[2019-07-02] MEDS: GABAPENTIN 300 MG CAP PO SCH (22:39)
[2019-07-03] VITALS (8 sets, daily range): BP systolic 98–149; BP diastolic 59–76
--- NOTE | 2019-07-03 01:37 | NUR ---
IV Insertion Inserted 20g IV to the Left forearm. IV secured properly. Patient tolerated well. NOTE: Patient needs 2 IVs.
[2019-07-03] MEDS ORDERED: GABAPENTIN 300 MG CAP PO SCH (06:00)
[2019-07-03] MEDS: InsuLIN REG 1unit/0.01ml Soln (100units/ml) SC SCH ×4 (06:12→22:00)
[2019-07-03] MEDS: ACCU-CHEK COMFORT CURVE STRIP VI SCH ×4 (06:12→22:33)
--- NOTE | 2019-07-03 07:55 | NUR ---
Received pt resting in bed, call light within reach, pt educated to not eat or drink anything until after procedure.
--- NOTE | 2019-07-03 08:00 | NUR ---
Pt taken to stress lab.
[2019-07-03] MEDS ORDERED: ADENOSINE 64 MG in GIVE UN-DILUTED 0 ML IV STA (08:15)
[2019-07-03] MEDS: METOPROLOL SUCCINATE XL 50 MG TAB PO SCH (10:00)
[2019-07-03] MEDS: cefTRIAXone 1GM/50ML D5W 50 ML IV SCH (10:19)
[2019-07-03] MEDS: ASPirin-EC 81 mg tab PO SCH (10:20)
[2019-07-03] MEDS: hydrALAZINE HCL 25 MG TAB PO SCH ×2 (10:20→22:28)
[2019-07-03] MEDS: POTASSIUM CHL 10 Meq TABLET PO SCH (10:20)
[2019-07-03] MEDS: amLODIPine BESYLATE 5 MG TAB PO SCH (10:20)
--- NOTE | 2019-07-03 10:30 | NUR ---
Pt back from stress lab.
--- NOTE | 2019-07-03 10:45 | NUR ---
Pt out of bed with physical therapy.
[2019-07-03 11:22] LABS: BUN/Creatinine Ratio 18.3; Calcium 9.1 mg/dL (8.5-10.1); Potassium 3.2 mmol/L (3.5-5.1)
--- NOTE | 2019-07-03 11:25 | NUR ---
Pt taken to radiology for brain MRI.
--- NOTE | 2019-07-03 14:11 | NUR ---
Dr. Hernandez at bed side to see pt, doctor informed of holding the Toprol XL, doctor requested for Dr. Salinas / cardio to be paged for cardiac clearance for d/c and to see if the stress test is negative.
--- NOTE | 2019-07-03 14:15 | NUR ---
Wu Salinas / cardio for cardiac clearance for d/c and for the stress test results. Awaiting for call back.
[2019-07-03] MEDS: SODIUM CHLORIDE 0.9% 1,000 ML IV SCH (14:18)
[2019-07-03] MEDS: POTASSIUM CHL 20MEQ/100ML 100 ML IV SCH ×3 (14:18→19:11)
[2019-07-03] MEDS ORDERED: CIPR-173 PO (14:56)
[2019-07-03] MEDS: TAMSULOSIN HYDROCHLORIDE 0.4 MG CAP PO SCH (17:35)
--- NOTE | 2019-07-03 19:28 | NUR ---
Opening Shift Note Received report and assumed care of patient. Patient is awake and alert. No signs or symptoms of distress noted. Instructed patient on plan of care and to call for assistance as needed. Will continue to monitor.
[2019-07-03] MEDS: HYDROcodone-ACET 5/325MG TAB PO PRN (20:31)
--- NOTE | 2019-07-03 20:31 | NUR ---
Pain Medication Administration Patient complaining of lower back pain /10. Will administer pain medication per MD order. Will reassess pain level and will continue to monitor.
--- NOTE | 2019-07-03 20:40 | NUR ---
Dr. Brown's Recommendations Dr. Brown in to see patient. Dr. Brown made aware of patient's pending discharge, states to hold discharge since he would like to run more tests on patient and states that if patient is discharged, he would have to readmit patient to run the tests. Will inform Dr. Hernandez of Dr. Brown's recommendation to hold discharge.
--- NOTE | 2019-07-03 21:22 | NUR ---
Paged Dr. Hernandez Paged Dr. Hernandez/ length control tester to inform of recommendations to hold discharge. Awaiting call back.
--- NOTE | 2019-07-03 21:31 | NUR ---
Pain Level Reassessment Patient's pain level reassessed to 0/10. No signs or symptoms of distress noted. Will continue to monitor.
[2019-07-03] MEDS: GABAPENTIN 300 MG CAP PO SCH (22:28)
[2019-07-03] MEDS: PRAMIPEXOLE DIHYDROCHLORIDE MO 0.25 MG TAB PO SCH (22:29)
[2019-07-03] MEDS: ATORVASTATIN 20 MG TAB PO SCH (22:29)
--- NOTE | 2019-07-03 22:29 | NUR ---
Paged Dr. Hernandez Paged Dr. Hernandez/ document control specialist to inform of recommendations to hold discharge. Awaiting call back.
--- NOTE | 2019-07-03 22:52 | NUR ---
Held Discharge Spoke with Dr. Padilla regarding recommendations to hold discharge per Dr. Brown. Per Dr. Padilla, hold discharge and inform AM nurse to call Dr. Hernandez at 0700 to inform that patient's discharge was held.
[2019-07-04 05:26] VITALS: BP 130/80
[2019-07-04] MEDS: SODIUM CHLORIDE 0.9% 1,000 ML IV SCH (06:22)
[2019-07-04] MEDS: ACCU-CHEK COMFORT CURVE STRIP VI SCH ×2 (06:22→12:13)
[2019-07-04] MEDS: InsuLIN REG 1unit/0.01ml Soln (100units/ml) SC SCH ×2 (06:22→12:15)
[2019-07-04 06:26] LABS: BUN/Creatinine Ratio 20.8; Calcium 8.7 mg/dL (8.5-10.1); Potassium 3.8 mmol/L (3.5-5.1)
[2019-07-04 08:00] VITALS: BP 138/86
[2019-07-04 09:00] VITALS: BP 138/86
[2019-07-04] MEDS: METOPROLOL SUCCINATE XL 50 MG TAB PO SCH (09:35)
[2019-07-04] MEDS: hydrALAZINE HCL 25 MG TAB PO SCH (09:36)
[2019-07-04] MEDS: ASPirin-EC 81 mg tab PO SCH (09:36)
[2019-07-04] MEDS: HYDROcodone-ACET 5/325MG TAB PO PRN (09:36)
[2019-07-04] MEDS: amLODIPine BESYLATE 5 MG TAB PO SCH (09:37)
[2019-07-04] MEDS: POTASSIUM CHL 10 Meq TABLET PO SCH (09:37)
[2019-07-04] MEDS: cefTRIAXone 1GM/50ML D5W 50 ML IV SCH (09:38)
--- NOTE | 2019-07-04 10:36 | NUR ---
CALLED DR. VILLEGAS VIA [phone] REGARDING DISCHARGE ORDER IS HELD PER DR. HANSON RECOMMENDATION. ONE MESSAGE WAS LEFT.
--- NOTE | 2019-07-04 11:40 | NUR ---
RECEIVED PHONE CALL FROM DR. VILLEGAS. STATED PT CAN BE DISCHARGED HOME TODAY. FOLLOW UP WITH NEUROLOGIST DR. HANSON WITHIN 1 WEEK.
[2019-07-04 12:57] VITALS: BP 138/86
[2019-07-04 13:00] VITALS: BP 136/78
[2019-07-04] MEDS ORDERED: GABAPENTIN 300 MG CAP PO SCH (14:00)
--- NOTE | 2019-07-04 14:40 | NUR ---
Discharge instructions given as ordered. Encourage to follow up with pcp Dr. Piedra and neurologist Dr. Brown as instructed. All questions and concerns addressed. Patient verbalized understanding. Medication reconciliation form completed and copy given to patient. IV removed with catheter intact, pressure dressing applied. Telemetry unit returned to ICU. Patient taken to vehicle via wheelchair with all personal belongings, accompanied by staff and family member. No distress noted at time of departure.
== END 2019-07-04 14:20 | disposition home or self-care (01) | DRG 683 ==
LOC: ER 23:07 → EDBD 23:07 → TELE-WESTW 23:08
PROVIDERS: ADMIT Hospitalist; ATTEND Hospitalist
DX: N17.9 Acute kidney failure, unspecified (principal); G91.2 (Idiopathic) normal pressure hydrocephalus; N39.0 Urinary tract infection, site not specified; J44.1 Chronic obstructive pulmonary disease with (acute) exacerbation; E86.0 Dehydration; N18.4 Chronic kidney disease, stage 4 (severe); I12.9 Hypertensive chronic kidney disease with stage 1 through stage 4 chronic kidney disease, or unspecified chronic kidney disease; E87.6 Hypokalemia; E11.65 Type 2 diabetes mellitus with hyperglycemia; E78.00 Pure hypercholesterolemia, unspecified; N40.0 Benign prostatic hyperplasia without lower urinary tract symptoms; E11.42 Type 2 diabetes mellitus with diabetic polyneuropathy; J44.9 Chronic obstructive pulmonary disease, unspecified; M19.90 Unspecified osteoarthritis, unspecified site; F17.210 Nicotine dependence, cigarettes, uncomplicated; W06.XXXA Fall from bed, initial encounter; I25.10 Atherosclerotic heart disease of native coronary artery without angina pectoris; G31.9 Degenerative disease of nervous system, unspecified; F41.9 Anxiety disorder, unspecified; F32.9 Major depressive disorder, single episode, unspecified; T50.2X5A Adverse effect of carbonic-anhydrase inhibitors, benzothiadiazides and other diuretics, initial encounter; E11.22 Type 2 diabetes mellitus with diabetic chronic kidney disease; Z82.49 Family history of ischemic heart disease and other diseases of the circulatory system; Z86.73 Personal history of transient ischemic attack (TIA), and cerebral infarction without residual deficits; Z80.3 Family history of malignant neoplasm of breast; Z83.3 Family history of diabetes mellitus; Z79.899 Other long term (current) drug therapy; Z79.84 Long term (current) use of oral hypoglycemic drugs; Z79.82 Long term (current) use of aspirin
CPT/HCPCS: 36415; 70450; 70551; 71045; 71101; 72125; 76775; 78452; 80048; 80053; 81001; 82962; 83036; 83735; 84484; 85025; 85379; 85610; 85730; 87086; 93005; 93017; 93306; 93886; 95819; 96360; 97116; 97163; 97530; G0378; J0153; J0696; J1815; J3480

== ENCOUNTER 2019-08-16 13:26 | Emergency (ER) | payer BC ==
[~2019-08-16] VITALS: Ht 175.3 cm; Wt 78.9 kg
[~2019-08-16 13:26] MED LIST changes: -ATEN100T PO; -BACL10TA PO; +CIPR-173 PO; -ERGO1CAP23 PO; +FERR45TA7 PO; -FURO1TAB31 PO
[2019-08-16 13:42] VITALS: BP 172/91
[2019-08-16] MEDS ORDERED: HYDROcodone-ACET 5/325MG TAB PO ONE (15:00)
== END 2019-08-16 16:02 | disposition home or self-care (01) ==
LOC: ER 13:26
DX: S82.001A Unspecified fracture of right patella, initial encounter for closed fracture (principal); M19.90 Unspecified osteoarthritis, unspecified site; I10 Essential (primary) hypertension; E11.9 Type 2 diabetes mellitus without complications; F17.210 Nicotine dependence, cigarettes, uncomplicated; W19.XXXA Unspecified fall, initial encounter; Y93.01 Activity, walking, marching and hiking; Y92.89 Other specified places as the place of occurrence of the external cause; Y99.8 Other external cause status
CPT/HCPCS: 29505; 73562

== ENCOUNTER 2019-10-25 20:10 | Emergency (ER) | payer BC ==
[~2019-10-25] VITALS: Ht 175.3 cm; Wt 78.9 kg
[2019-10-25] MEDS ORDERED: ONDANSETRON HCL 4 MG/2 ML VIAL IV ONE ×2 (20:45→22:30)
[2019-10-25] MEDS ORDERED: SODIUM CHLORIDE 0.9% 1,000 ML IV ONE (21:00)
[2019-10-25 21:31] LABS: Basophils # (auto) 0.1 10 ^3/uL (0-0.2); Basophils % (auto) 1.2 % (0.0-2.0); Eosinophils # (auto) 0 10 ^3/uL (0-0.8); Hematocrit 43.4 % (41.0-53.0); Hemoglobin 14.3 g/dL (13.5-17.5); Lymphocytes # (auto) 1.1 10 ^3/uL (0.4-5.4); Lymphocytes % (auto) 23.1 % (10.0-50.0); Mean Corpuscular Hemoglobin 28.1 pg (28.0-32.0); Monocytes # (auto) 0.5 10 ^3/uL (0-1.3); Neutrophils # (auto) 2.9 10 ^3/uL (1.6-8.6); Neutrophils % (auto) 63.7 % (37.0-80.0); Nucleated Red Blood Cells % 0.3 %; Platelet Count (auto) 360 10^3/uL (140-450); Red Blood Cells 5.11 10^6/uL (4.5-5.90); Red Cell Distribution Width 14.4 % (11.8-14.3); White Blood Cell 4.6 10^3/uL (4.4-10.8)
[2019-10-25 21:42] LABS: Anion Gap 6 (5-15); Blood Urea Nitrogen 6 mg/dL (7-18); Calcium 10.1 mg/dL (8.5-10.1); Carbon Dioxide 32 mmol/L (21-32); Chloride 99 mmol/L (98-107); Glucose 119 mg/dL (74-106); Lipase 149 U/L (73-393); Potassium 3.7 mmol/L (3.5-5.1); Sodium 137 mmol/L (136-145)
[2019-10-25] MEDS ORDERED: hydrALAZINE HCL 20 MG/ML VL IV ONE (21:45)
[2019-10-25 21:51] LABS: Alanine Aminotransferase 24 U/L (16-61); Alkaline Phosphatase 123 U/L (45-117); Amylase 125 U/L (25-115); Aspartate Aminotransferase 12 U/L (15-37); BUN/Creatinine Ratio 7.3; Bilirubin, Total 0.5 mg/dL (0.2-1.0); GFR African American 119 mL/min; GFR Non-African American 98 mL/min; Total Protein 8.6 g/dL (6.4-8.2)
[2019-10-25] MEDS ORDERED: cloNIDine HCL 0.1 MG TAB PO ONE (22:00)
[2019-10-25 22:01] LABS: Urine Bacteria FEW /hpf (None Seen); Urine Blood Negative /uL (Negative); Urine Mucus FEW (None Seen); Urine Specific Gravity 1.014 (1.001-1.035); Urine WBC 2 /hpf (0 - 3)
[2019-10-25] MEDS ORDERED: MORPHINE SULFATE 4 MG/ML SYR/VIAL IV ONE (22:30)
[2019-10-26] MEDS ORDERED: ENALAPRILAT 1.25 MG/ML-1ML VIAL IV ONE (01:15)
[2019-10-26 04:11] VITALS: BP 129/74
== END 2019-10-26 04:54 | disposition home or self-care (01) ==
LOC: ER 20:13
DX: S33.5XXA Sprain of ligaments of lumbar spine, initial encounter (principal); K29.00 Acute gastritis without bleeding; I10 Essential (primary) hypertension; M19.90 Unspecified osteoarthritis, unspecified site; E11.9 Type 2 diabetes mellitus without complications; E78.5 Hyperlipidemia, unspecified; F17.210 Nicotine dependence, cigarettes, uncomplicated; Z79.899 Other long term (current) drug therapy; X58.XXXA Exposure to other specified factors, initial encounter; Y93.89 Activity, other specified; Y92.89 Other specified places as the place of occurrence of the external cause; Y99.8 Other external cause status
CPT/HCPCS: 36415; 74176; 80053; 81001; 82150; 82962; 83690; 83735; 84484; 85025; 96361; 96374; 96375; 96376; 99284; J2270; J2405

== ENCOUNTER 2019-11-05 23:44 | Inpatient (IN) | payer BC ==
[~2019-11-05] VITALS: Ht 175.3 cm; Wt 75.9 kg
[2019-11-06 00:59] LABS: Urine Bacteria NONE SEEN /hpf (None Seen); Urine Blood Negative /uL (Negative); Urine Mucus FEW (None Seen); Urine Specific Gravity 1.011 (1.001-1.035); Urine WBC 1 /hpf (0 - 3)
[2019-11-06 01:20] LABS: Hematocrit 42.8 % (41.0-53.0); Hemoglobin 14.2 g/dL (13.5-17.5); Mean Corpuscular Hemoglobin 27.8 pg (28.0-32.0); Mean Corpuscular Hgb Conc. 33.2 g/dL (32.0-36.0); Mean Corpuscular Volume 83.8 fL (80.0-100.0); Platelet Count (auto) 288 10^3/uL (140-450); Red Blood Cells 5.11 10^6/uL (4.5-5.90); Red Cell Distribution Width 14.6 % (11.8-14.3); White Blood Cell 6.7 10^3/uL (4.4-10.8)
[2019-11-06 01:23] LABS: Band Neutrophils % (manual) 0; Basophils % (manual) 0 (0.0-2.0); Blast Cells 0; Eosinophils % (manual) 0 (0-7); Metamyelocytes % 0; Myelocytes % 0; Promyelocytes % 0; Reactive Lymphocytes 0
[2019-11-06 01:35] LABS: Albumin 3.8 g/dL (3.4-5.0); Calcium 9.3 mg/dL (8.5-10.1); Potassium 3.3 mmol/L (3.5-5.1)
[2019-11-06 01:38] LABS: Bilirubin, Total 0.6 mg/dL (0.2-1.0); Total Protein 8.1 g/dL (6.4-8.2)
[2019-11-06] MEDS ORDERED: SODIUM CHLORIDE 0.9% 1,000 ML IV ONE (01:44)
[2019-11-06] MEDS ORDERED: ONDANSETRON HCL 4 MG/2 ML VIAL IV ONE (01:45)
[2019-11-06 01:48] LABS: Lymphocytes % (manual) 18 (10.0-50.0); Monocytes % (manual) 9 (0-12)
[2019-11-06 02:08] LABS: Amylase 84 U/L (25-115); Lipase 123 U/L (73-393)
[2019-11-06] MEDS ORDERED: metroNIDAZOLE 500MG/100ML 100 ML IV ONE (03:45)
[2019-11-06] MEDS ORDERED: cefTRIAXone 1GM/50ML D5W 50 ML IV ONE (03:45)
[2019-11-06] MEDS ORDERED: cloNIDine HCL 0.1 MG TAB PO ONE (03:45)
[2019-11-06] MEDS ORDERED: SODIUM CHLORIDE 0.9% 1,000 ML IV SCH (04:36)
[2019-11-06] MEDS ORDERED: HYDROcodone-ACET 5/325MG TAB PO PRN (04:45)
[2019-11-06] MEDS ORDERED: ONDANSETRON HCL 4 MG/2 ML VIAL IV PRN (04:45)
[2019-11-06] MEDS ORDERED: ACETAMINOPHEN 325 MG TAB PO PRN (04:45)
[2019-11-06] MEDS ORDERED: DEXTROSE (50%) 50ML SYRG IV PRN (04:45)
[2019-11-06] MEDS: metroNIDAZOLE 500MG/100ML 100 ML IV SCH ×2 (06:30→11:56)
[2019-11-06 06:39] LABS: Hematocrit 37.9 % (41.0-53.0); Hemoglobin 12.7 g/dL (13.5-17.5); Mean Corpuscular Hgb Conc. 33.4 g/dL (32.0-36.0); Platelet Count (auto) 260 10^3/uL (140-450); Red Blood Cells 4.51 10^6/uL (4.5-5.90); Red Cell Distribution Width 14.5 % (11.8-14.3); White Blood Cell 7.4 10^3/uL (4.4-10.8)
[2019-11-06 06:53] LABS: Basophils % (manual) 0 (0.0-2.0); Blast Cells 0; Myelocytes % 0; Promyelocytes % 0; Reactive Lymphocytes 0
[2019-11-06 06:59] LABS: BUN/Creatinine Ratio 9.8; Calcium 8.5 mg/dL (8.5-10.1)
[2019-11-06 07:40] LABS: Band Neutrophils % (manual) 1; Eosinophils % (manual) 3 (0-7); Lymphocytes % (manual) 18 (10.0-50.0); Metamyelocytes % 1; Monocytes % (manual) 6 (0-12)
[2019-11-06] MEDS: InsuLIN REG 1unit/0.01ml Soln (100units/ml) SC SCH ×4 (07:59→17:00)
[2019-11-06] MEDS: ACCU-CHEK COMFORT CURVE STRIP VI SCH ×4 (08:00→17:00)
[2019-11-06 08:45] VITALS: BP 174/93
--- NOTE | 2019-11-06 08:45 | NUR ---
Medsurg admit from ER ADRI[facility]N ARCE admitted to unit after SBAR received. Patient oriented to ESTEFANIA ZARATE RN primary RN, unit, room, bed, and unit policies regarding patient care and visiting hours. All questions and concerns addressed, patient verbalized understanding.
--- NOTE | 2019-11-06 09:15 | NUR ---
Hospitalist paged Hospitalist paged regarding elevated B/P upon admission to Telemetry floor. No PRN antihypertensives on EMAR at this time. Awaiting call back.
[2019-11-06 09:20] VITALS: BP 174/93
--- NOTE | 2019-11-06 09:56 | NUR ---
Second page to hospitalist Hospitalist paged regarding elevated B/P upon admission to Telemetry floor of . No PRN antihypertensives on EMAR at this time. Awaiting call back.
[2019-11-06 13:00] VITALS: BP 152/92
--- NOTE | 2019-11-06 15:19 | NUR ---
Pain PAtient complaining of chronic back pain rated 6/10. Will medicate with [place] 5/325 as per MD orders and continue to assess pain.
[2019-11-06] MEDS ORDERED: POTASSIUM EFFERVESENT TAB 25 MEQ PO ONE (15:30)
[2019-11-06] MEDS ORDERED: POTASSIUM CHL 20MEQ/100ML 100 ML IV SCH ×2 (15:30→15:45)
[2019-11-06] MEDS ORDERED: amLODIPine BESYLATE 5 MG TAB PO SCH (15:45)
[2019-11-06] MEDS ORDERED: METOPROLOL TARTRATE 1MG/1ML-5ML VIAL IV ONE (15:45)
[2019-11-06] MEDS ORDERED: levoFLOXacin 500 MG TAB PO SCH (15:45)
[2019-11-06] MEDS ORDERED: METOPROLOL SUCCINATE XL 50 MG TAB PO SCH (15:45)
--- NOTE | 2019-11-06 16:00 | NUR ---
D/C clearance obtained from GI
[2019-11-06] MEDS ORDERED: LANC30MI13 TOP (16:08)
[2019-11-06] MEDS ORDERED: GLUC-20 (16:08)
[2019-11-06] MEDS ORDERED: LISI-646 PO (16:08)
[2019-11-06] MEDS ORDERED: LISINOPRIL 20 MG TAB PO SCH (16:15)
[2019-11-06] MEDS ORDERED: LEVO-28 PO (16:15)
[2019-11-06] MEDS ORDERED: MET500T PO (16:15)
[2019-11-06 17:00] VITALS: BP 168/102
[2019-11-06] MEDS ORDERED: TAMSULOSIN HYDROCHLORIDE 0.4 MG CAP PO SCH (18:00)
--- NOTE | 2019-11-06 19:27 | NUR ---
Opening Shift Note Assumed care of patient after receiving report from SHAWNA Mares. Patient is awake and alert with no S/S of distress/SOB or pain. Call light within reach, bed in lowest locked position x2 side rails, HOB semi fowlers. Instructed on POC and to call for assist PRN, will continue to monitor for changes Q1hr and PRN.
[2019-11-06 20:30] VITALS: BP 137/89
--- NOTE | 2019-11-06 21:45 | NUR ---
BM, ambulated Patient ambulated with walker to bathroom. Patient had BM and ambulated back to bed. Patients gait was steady and even, minimal assistance required.
[2019-11-06 21:53] VITALS: BP 168/102
[2019-11-06] MEDS ORDERED: ATORVASTATIN 20 MG TAB PO SCH (22:00)
[2019-11-06] MEDS ORDERED: metroNIDAZOLE 500 MG TAB PO SCH (22:00)
[2019-11-06] MEDS ORDERED: buPROPion HCL 100 MG TAB PO SCH (22:00)
[2019-11-06] MEDS ORDERED: metroNIDAZOLE 500MG/100ML 100 ML IV SCH (22:00)
--- NOTE | 2019-11-06 22:45 | NUR ---
DC, patient off unit Discharge paperwork completed per MD order. Discharge instructions reviewed with patient. All belongings with patient. IV removed and ID band removed and shredded. Patient was med-surg patient, no tele box to remove. Patient was taken down by RN via personal wheelchair. Family member waiting for patient for ride home.
[2019-11-07 00:19] LABS: Alcohol, Urine < 3.0 mg/dL (0-10); Amphetamine Screen, Urine NEGATIVE (NEGATIVE); Barbiturate Scree,Urine NEGATIVE (NEGATIVE); Benzodiazephine Screen, Urine NEGATIVE (NEGATIVE); Cannabinoid Screen, Urine NEGATIVE (NEGATIVE); Cocaine Screen, Urine NEGATIVE (NEGATIVE); Opiate Scree,Urine POSITIVE (NEGATIVE); Phencyclidine Screen, Urine NEGATIVE (NEGATIVE)
[2019-11-07] MEDS ORDERED: ASPirin-EC 81 mg tab PO SCH (10:00)
== END 2019-11-06 22:45 | disposition home or self-care (01) | DRG 394 ==
LOC: ER 23:48 → OVERFLOW 23:49 → WEST WING 11-06 09:11
PROVIDERS: ADMIT Hospitalist; ATTEND Internal Medicine
DX: K55.9 Vascular disorder of intestine, unspecified (principal); I16.9 Hypertensive crisis, unspecified; K57.90 Diverticulosis of intestine, part unspecified, without perforation or abscess without bleeding; E86.0 Dehydration; E87.6 Hypokalemia; E11.9 Type 2 diabetes mellitus without complications; E78.5 Hyperlipidemia, unspecified; F17.210 Nicotine dependence, cigarettes, uncomplicated; I10 Essential (primary) hypertension; J44.9 Chronic obstructive pulmonary disease, unspecified; N40.0 Benign prostatic hyperplasia without lower urinary tract symptoms; Z80.3 Family history of malignant neoplasm of breast
CPT/HCPCS: 36415; 70450; 71250; 74176; 80048; 80053; 80061; 80307; 81001; 82150; 82962; 83036; 83605; 83690; 85007; 85027; 96361; 96365; 96366; 96367; 96368; G0378; J0696; J2405; J3480; J3490

== ENCOUNTER 2020-06-28 15:22 | Emergency (ER) | payer BC ==
[~2020-06-28] VITALS: Ht 175.3 cm; Wt 81.2 kg
[~2020-06-28 15:22] MED LIST changes: +AMLO-496 PO; -AMLO10TA13 PO; +ATOR-47 PO; -ATOR1TAB PO; -CIPR-173 PO; -FERR45TA7 PO; +GLUC-20; -HYDR50TA15 PO; +LANC30MI13 TOP; +LEVO-28 PO; +LISI20TA28 PO; -LISI40TA11 PO; +MET500T PO; -METO-169 PO; -PIOG1TAB36 PO
[2020-06-28 15:56] LABS: Basophils # (auto) 0.1 10 ^3/uL (0-0.2); Basophils % (auto) 0.7 % (0.0-2.0); Eosinophils # (auto) 0.1 10 ^3/uL (0-0.8); Eosinophils % (auto) 1.4 % (0.0-7.0); Hematocrit 37.2 % (41.0-53.0); Hemoglobin 12.7 g/dL (13.5-17.5); Lymphocytes # (auto) 0.8 10 ^3/uL (0.4-5.4); Lymphocytes % (auto) 9.7 % (10.0-50.0); Mean Corpuscular Hgb Conc. 34.3 g/dL (32.0-36.0); Mean Corpuscular Volume 84.7 fL (80.0-100.0); Monocytes # (auto) 0.7 10 ^3/uL (0-1.3); Monocytes % (auto) 9.4 % (0.0-12.0); Neutrophils # (auto) 6.3 10 ^3/uL (1.6-8.6); Neutrophils % (auto) 78.8 % (37.0-80.0); Red Blood Cells 4.39 10^6/uL (4.5-5.90); Red Cell Distribution Width 13.4 % (11.8-14.3)
[2020-06-28 16:06] LABS: Albumin 2.8 g/dL (3.4-5.0); Anion Gap 8 (5-15); Blood Urea Nitrogen 8 mg/dL (7-18); Calcium 8.7 mg/dL (8.5-10.1); Carbon Dioxide 26 mmol/L (21-32); Chloride 101 mmol/L (98-107); Glucose 121 mg/dL (74-106); Potassium 3.2 mmol/L (3.5-5.1); Sodium 135 mmol/L (136-145)
[2020-06-28 16:11] LABS: Alanine Aminotransferase 27 U/L (16-61); Alkaline Phosphatase 114 U/L (45-117); Aspartate Aminotransferase 20 U/L (15-37); BUN/Creatinine Ratio 10.1; Bilirubin, Total 0.5 mg/dL (0.2-1.0); GFR African American 124 mL/min; GFR Non-African American 102 mL/min; Total Protein 7.8 g/dL (6.4-8.2)
[2020-06-28 18:36] VITALS: BP 178/96
[2020-06-28] MEDS ORDERED: POTASSIUM EFFERVESENT TAB 25 MEQ PO ONE (18:45)
== END 2020-06-28 19:13 | disposition home or self-care (01) ==
LOC: ER 15:22
DX: S32.018A Other fracture of first lumbar vertebra, initial encounter for closed fracture (principal); M79.18 Myalgia, other site; M25.561 Pain in right knee; E87.6 Hypokalemia; E11.9 Type 2 diabetes mellitus without complications; I10 Essential (primary) hypertension; F17.210 Nicotine dependence, cigarettes, uncomplicated; Z79.84 Long term (current) use of oral hypoglycemic drugs; Z79.899 Other long term (current) drug therapy; Z96.651 Presence of right artificial knee joint; W18.09XA Striking against other object with subsequent fall, initial encounter; Y93.89 Activity, other specified; Y92.89 Other specified places as the place of occurrence of the external cause; Y99.8 Other external cause status
CPT/HCPCS: 36415; 72100; 73562; 73590; 80053; 84484; 85025

== ENCOUNTER 2020-07-05 17:38 | Emergency (ER) | payer BC ==
[~2020-07-05] VITALS: Ht 175.3 cm; Wt 79.4 kg
[2020-07-05] MEDS ORDERED: NEOMYCIN-BACITRACIN-POLYM UNITDOSE PKG TOP OINT TOP ONE (19:00)
[2020-07-05 20:47] VITALS: BP 165/77
== END 2020-07-05 20:52 | disposition home or self-care (01) ==
LOC: ER 17:38
DX: S80.811A Abrasion, right lower leg, initial encounter (principal); E11.9 Type 2 diabetes mellitus without complications; I10 Essential (primary) hypertension; F17.210 Nicotine dependence, cigarettes, uncomplicated; Z79.82 Long term (current) use of aspirin; Z79.84 Long term (current) use of oral hypoglycemic drugs; Z79.899 Other long term (current) drug therapy; W18.39XA Other fall on same level, initial encounter; Y93.89 Activity, other specified; Y92.89 Other specified places as the place of occurrence of the external cause; Y99.8 Other external cause status

== ENCOUNTER 2021-06-04 17:04 | Emergency (ER) | payer BC, MEDICAID ==
[~2021-06-04] VITALS: Ht 175.3 cm; Wt 82.6 kg
[~2021-06-04 17:04] MED LIST changes: +BUPR-160 PO; -BUPR100T14 PO
[2021-06-04] MEDS ORDERED: LIDOCAINE 5% TOPICAL PATCH TOP ONE (21:15)
[2021-06-04 21:25] VITALS: BP 154/81
[2021-06-04] MEDS ORDERED: LIDO5DIS21 TOP (21:27)
== END 2021-06-04 22:03 | disposition home or self-care (01) ==
LOC: ER 17:04
DX: R07.89 Other chest pain (principal); E11.9 Type 2 diabetes mellitus without complications; E78.5 Hyperlipidemia, unspecified; I10 Essential (primary) hypertension; F17.210 Nicotine dependence, cigarettes, uncomplicated
CPT/HCPCS: 71101

== ENCOUNTER 2023-09-24 12:59 | Inpatient (IN) | payer MEDICARE, MEDICAID ==
[~2023-09-24] VITALS: Ht 175.3 cm; Wt 72.4 kg
[~2023-09-24 12:59] MED LIST changes: -AMLO-496 PO; +AMLO1TAB23 PO; -BUPR-160 PO; +BUPR-346 PO; +GABA-1250 PO; -GABA300C10 PO; -LEVO-28 PO; +LEVO500T91 PO; +LIDO5DIS21 TOP; -LISI20TA28 PO; +LISI20TA56 PO; +POTA-215 PO; -POTA1TAB61 PO
[2023-09-24 14:09] LABS: Basophils # (auto) 0 10 ^3/uL (0-0.2); Basophils % (auto) 1.3 % (0.0-2.0); Eosinophils # (auto) 0.1 10 ^3/uL (0-0.8); Eosinophils % (auto) 1.8 % (0.0-7.0); Hematocrit 43.2 % (41.0-53.0); Hemoglobin 14.2 g/dL (13.5-17.5); Lymphocytes % (auto) 25.8 % (10.0-50.0); Mean Corpuscular Volume 84.9 fL (80.0-100.0); Monocytes # (auto) 0.3 10 ^3/uL (0-1.3); Monocytes % (auto) 9.3 % (0.0-12.0); Neutrophils # (auto) 2.3 10 ^3/uL (1.6-8.6); Neutrophils % (auto) 61.8 % (37.0-80.0); Nucleated Red Blood Cells % 0.1 %; Red Blood Cells 5.09 10^6/uL (4.5-5.90); Red Cell Distribution Width 16.1 % (11.8-14.3); White Blood Cell 3.7 10^3/uL (4.4-10.8)
[2023-09-24 14:25] LABS: Alanine Aminotransferase 49 U/L (7-40); Albumin 4.1 g/dL (3.2-4.8); Alkaline Phosphatase 100 U/L (46-116); Anion Gap 9 (5-15); Aspartate Aminotransferase 23 U/L (13-40); BUN/Creatinine Ratio 14.5 (10.0-20.0); Bilirubin, Total 0.8 mg/dL (0.2-1.0); Blood Urea Nitrogen 16 mg/dL (9-23); Calcium 9.5 mg/dL (8.7-10.4); Carbon Dioxide 25 mmol/L (20-30); Chloride 108 mmol/L (98-107); Glucose 106 mg/dL (74-106); Potassium 3.9 mmol/L (3.5-5.1); Sodium 142 mmol/L (136-145)
[2023-09-24 14:26] LABS: Total Protein 6.6 g/dL (5.7-8.2)
[2023-09-24] MEDS: NITROGLYCERIN 50MG/250ML 250 ML IV ONE (19:15)
[2023-09-24] MEDS ORDERED: ONDANSETRON HCL 4 MG/2 ML VIAL IV PRN (19:30)
[2023-09-24] MEDS ORDERED: NITROGLYCERIN 0.4 MG SL TAB SL PRN (19:30)
[2023-09-24] MEDS ORDERED: MORPHINE SULFATE INJ 2 MG/ml SYRG IV PRN (19:30)
[2023-09-24 20:00] VITALS: PULSE 86; RESP 16; O2SAT 96
[2023-09-24] MEDS: ASPirin 325 MG TAB PO ONE (20:08)
[2023-09-24] MEDS: FUROSEMIDE 40 MG/4 ML VIAL IV ONE (20:10)
[2023-09-24] MEDS: hydrALAZINE HCL 20 MG/ML VL IV PRN (20:23)
[2023-09-24] MEDS: ATORVASTATIN 20 MG TAB PO SCH (22:00)
[2023-09-25] VITALS (12 sets, daily range): BP systolic 118–167; BP diastolic 67–103; PULSE 69–88; RESP 18; TEMP 97.4–98.1; O2SAT 92–98
[2023-09-25] MEDS: ACETAMINOPHEN 325 MG TAB PO PRN (00:23)
[2023-09-25 01:39] LABS: Urine Bacteria None Seen /hpf (None Seen)
[2023-09-25 01:47] LABS: Urine Blood TRACE /uL (Negative); Urine Clarity Clear (Clear); Urine Color Colorless (Yellow); Urine Protein, UAD Negative (Negative); Urine Specific Gravity 1.006 (1.001-1.035); Urine Urobilinogen Normal (Negative); Urine WBC 7 /hpf (0 - 3)
[2023-09-25] MEDS: FUROSEMIDE 20 MG/2 ML VIAL IV SCH (06:24)
[2023-09-25 06:36] LABS: Basophils # (auto) 0.1 10 ^3/uL (0-0.2); Basophils % (auto) 1.2 % (0.0-2.0); Eosinophils # (auto) 0.2 10 ^3/uL (0-0.8); Eosinophils % (auto) 3.7 % (0.0-7.0); Hematocrit 47.3 % (41.0-53.0); Hemoglobin 15.9 g/dL (13.5-17.5); Lymphocytes % (auto) 23.8 % (10.0-50.0); Mean Corpuscular Hemoglobin 28.4 pg (28.0-32.0); Mean Corpuscular Hgb Conc. 33.6 g/dL (32.0-36.0); Mean Corpuscular Volume 84.6 fL (80.0-100.0); Monocytes # (auto) 0.4 10 ^3/uL (0-1.3); Monocytes % (auto) 10.3 % (0.0-12.0); Neutrophils # (auto) 2.6 10 ^3/uL (1.6-8.6); Nucleated Red Blood Cells % 0.1 %; Red Blood Cells 5.59 10^6/uL (4.5-5.90); Red Cell Distribution Width 16.1 % (11.8-14.3); White Blood Cell 4.3 10^3/uL (4.4-10.8)
[2023-09-25 06:50] LABS: Alanine Aminotransferase 45 U/L (7-40); Albumin 4.1 g/dL (3.2-4.8); Alkaline Phosphatase 102 U/L (46-116); Anion Gap 7 (5-15); Aspartate Aminotransferase 19 U/L (13-40); BUN/Creatinine Ratio 9.5 (10.0-20.0); Bilirubin, Total 0.9 mg/dL (0.2-1.0); Blood Urea Nitrogen 12 mg/dL (9-23); Calcium 9.7 mg/dL (8.7-10.4); Carbon Dioxide 30 mmol/L (20-30); Chloride 106 mmol/L (98-107); Glucose 139 mg/dL (74-106); Potassium 3.4 mmol/L (3.5-5.1); Sodium 143 mmol/L (136-145); Total Protein 7.3 g/dL (5.7-8.2)
[2023-09-25] MEDS: POTASSIUM CHL 20 Meq TABLET PO ONE (08:16)
[2023-09-25] MEDS ORDERED: POTASSIUM CHL 20 Meq TABLET PO ONE (08:45)
[2023-09-25] MEDS: ENOXAPARIN SOD 40 MG/0.4 ML SYRINGE SC SCH (10:00)
[2023-09-25] MEDS ORDERED: LISI20TA56 PO (11:09)
[2023-09-25] MEDS ORDERED: AMLO1TAB23 PO (11:09)
[2023-09-25] MEDS: TRIAMTERENE/HCTZ 37.5/25 MG CAP/TAB PO SCH (11:44)
[2023-09-25] MEDS: ASPirin 81 mg TAB PO SCH (11:44)
[2023-09-25] MEDS: amLODIPine BESYLATE 5 MG TAB PO SCH (11:45)
[2023-09-25] MEDS: buPROPion HCL 100 MG TAB PO SCH (14:00)
[2023-09-25] MEDS: LOSARTAN POTASSIUM 50 MG TAB PO ONE (15:09)
[2023-09-25] MEDS: GABAPENTIN 300 MG CAP PO SCH (15:10)
[2023-09-25] MEDS ORDERED: TAMSULOSIN HYDROCHLORIDE 0.4 MG CAP PO SCH (18:00)
[2023-09-25] MEDS: TAMSULOSIN HYDROCHLORIDE 0.4 MG CAP PO SCH (19:26)
[2023-09-25] MEDS: PRAMIPEXOLE DIHYDROCHLORIDE MO 0.25 MG TAB PO SCH (21:29)
[2023-09-26] VITALS (8 sets, daily range): BP systolic 108–124; BP diastolic 72–84; PULSE 57–85; RESP 16–20; TEMP 97.1–98.4; O2SAT 92–97
[2023-09-26 05:13] LABS: Anion Gap 8 (5-15); Carbon Dioxide 27 mmol/L (20-30); Chloride 105 mmol/L (98-107); Potassium 3.6 mmol/L (3.5-5.1); Sodium 140 mmol/L (136-145)
[2023-09-26 05:15] LABS: Calcium 9.1 mg/dL (8.7-10.4)
[2023-09-26 05:17] LABS: Basophils # (auto) 0 10 ^3/uL (0-0.2); Eosinophils # (auto) 0.1 10 ^3/uL (0-0.8); Eosinophils % (auto) 3.5 % (0.0-7.0); Hemoglobin 14.1 g/dL (13.5-17.5); Lymphocytes % (auto) 24.7 % (10.0-50.0); Mean Corpuscular Hemoglobin 28.3 pg (28.0-32.0); Mean Corpuscular Hgb Conc. 33.5 g/dL (32.0-36.0); Mean Corpuscular Volume 84.2 fL (80.0-100.0); Monocytes # (auto) 0.5 10 ^3/uL (0-1.3); Monocytes % (auto) 13.2 % (0.0-12.0); Neutrophils # (auto) 2.4 10 ^3/uL (1.6-8.6); Neutrophils % (auto) 57.6 % (37.0-80.0); Nucleated Red Blood Cells % 0.1 %; Red Blood Cells 4.98 10^6/uL (4.5-5.90); Red Cell Distribution Width 16.7 % (11.8-14.3); White Blood Cell 4.1 10^3/uL (4.4-10.8)
[2023-09-26 05:19] LABS: Blood Urea Nitrogen 15 mg/dL (9-23); Glucose 139 mg/dL (74-106)
[2023-09-26] MEDS: LOSARTAN POTASSIUM 50 MG TAB PO SCH (10:00)
[2023-09-26] MEDS ORDERED: LISINOPRIL 20 MG TAB PO SCH ×2 (10:00)
[2023-09-26] MEDS ORDERED: ASPirin 81 mg TAB PO SCH (10:00)
[2023-09-26] MEDS: METOPROLOL SUCCINATE XL 50 MG TAB PO SCH (12:08)
[2023-09-26] MEDS: ASPirin-EC 81 mg tab PO SCH (12:09)
[2023-09-26] MEDS: SACUBITRIL-VALSARTAN 24mg/26mg TAB PO SCH (12:35)
[2023-09-27] VITALS (8 sets, daily range): BP systolic 99–139; BP diastolic 59–78; PULSE 58–70; RESP 14–20; TEMP 97.2–98.1; O2SAT 94–100
[2023-09-27 06:16] LABS: Basophils # (auto) 0.1 10 ^3/uL (0-0.2); Basophils % (auto) 1.3 % (0.0-2.0); Eosinophils # (auto) 0.2 10 ^3/uL (0-0.8); Eosinophils % (auto) 6.2 % (0.0-7.0); Hematocrit 42.9 % (41.0-53.0); Lymphocytes # (auto) 1.2 10 ^3/uL (0.4-5.4); Lymphocytes % (auto) 30.1 % (10.0-50.0); Mean Corpuscular Hemoglobin 28.3 pg (28.0-32.0); Mean Corpuscular Hgb Conc. 32.6 g/dL (32.0-36.0); Mean Corpuscular Volume 86.9 fL (80.0-100.0); Monocytes # (auto) 0.5 10 ^3/uL (0-1.3); Neutrophils % (auto) 50.4 % (37.0-80.0); Nucleated Red Blood Cells % 0.1 %; Red Blood Cells 4.93 10^6/uL (4.5-5.90); Red Cell Distribution Width 16.3 % (11.8-14.3)
[2023-09-27 06:32] LABS: Chloride 103 mmol/L (98-107); Potassium 3.9 mmol/L (3.5-5.1); Sodium 138 mmol/L (136-145)
[2023-09-27 06:33] LABS: Calcium 8.9 mg/dL (8.7-10.4)
[2023-09-27 06:38] LABS: BUN/Creatinine Ratio 12.1 (10.0-20.0); Blood Urea Nitrogen 17 mg/dL (9-23); Glucose 155 mg/dL (74-106)
[2023-09-27 07:35] LABS: Anion Gap 10 (5-15); Carbon Dioxide 25 mmol/L (20-30)
[2023-09-27 08:55] LABS: Hepatitis B Surface Antigen Negative (Negative)
[2023-09-27 09:16] LABS: Hepatitis C Antibody Negative (Negative)
[2023-09-27] MEDS: ADENOSINE 62 MG in GIVE UN-DILUTED 0 ML IV STA (11:06)
[2023-09-27] MEDS: FUROSEMIDE 20 MG TAB PO SCH (13:25)
[2023-09-28] VITALS (8 sets, daily range): BP systolic 97–140; BP diastolic 58–73; PULSE 60–77; RESP 16–19; TEMP 97.4–98.5; O2SAT 91–100
[2023-09-28 05:24] LABS: Basophils # (auto) 0 10 ^3/uL (0-0.2); Basophils % (auto) 1.1 % (0.0-2.0); Eosinophils # (auto) 0.2 10 ^3/uL (0-0.8); Eosinophils % (auto) 6.4 % (0.0-7.0); Hematocrit 45.2 % (41.0-53.0); Hemoglobin 14.9 g/dL (13.5-17.5); Lymphocytes # (auto) 1.4 10 ^3/uL (0.4-5.4); Lymphocytes % (auto) 36.4 % (10.0-50.0); Mean Corpuscular Hemoglobin 28.5 pg (28.0-32.0); Mean Corpuscular Hgb Conc. 32.9 g/dL (32.0-36.0); Mean Corpuscular Volume 86.7 fL (80.0-100.0); Monocytes # (auto) 0.5 10 ^3/uL (0-1.3); Monocytes % (auto) 13.3 % (0.0-12.0); Neutrophils # (auto) 1.6 10 ^3/uL (1.6-8.6); Neutrophils % (auto) 42.8 % (37.0-80.0); Nucleated Red Blood Cells % 0.1 %; Red Blood Cells 5.22 10^6/uL (4.5-5.90); Red Cell Distribution Width 16.4 % (11.8-14.3); White Blood Cell 3.7 10^3/uL (4.4-10.8)
[2023-09-28 05:26] LABS: Anion Gap 7 (5-15); Carbon Dioxide 26 mmol/L (20-30); Chloride 105 mmol/L (98-107); Potassium 3.9 mmol/L (3.5-5.1); Sodium 138 mmol/L (136-145)
[2023-09-28 05:32] LABS: BUN/Creatinine Ratio 10.1 (10.0-20.0); Blood Urea Nitrogen 15 mg/dL (9-23); Glucose 137 mg/dL (74-106)
[2023-09-28] MEDS: EMPAGLIFLOZIN 10 MG TAB PO SCH (09:29)
[2023-09-29 05:00] VITALS: BP 93/65; PULSE 66; RESP 18; TEMP 97.5; O2SAT 96
[2023-09-29] MEDS ORDERED: EMPA1TAB PO (07:06)
[2023-09-29] MEDS ORDERED: FURO20TA3 PO (07:06)
[2023-09-29] MEDS ORDERED: SACU1TAB PO (07:06)
[2023-09-29] MEDS ORDERED: METO-289 PO (07:06)
[2023-09-29 08:00] VITALS: RESP 18
[2023-09-29] MEDS: HYDROcodone-ACET 5/325MG TAB PO PRN (14:01)
== END 2023-09-29 15:32 | DRG 280 ==
LOC: ER 13:02 → TELE 19:31 → TELE-WESTW 09-25 02:25 → WEST WING 09-27 18:20
PROVIDERS: ADMIT Internal Medicine; ATTEND Internal Medicine
DX: I13.0 Hypertensive heart and chronic kidney disease with heart failure and stage 1 through stage 4 chronic kidney disease, or unspecified chronic kidney disease (principal); I50.23 Acute on chronic systolic (congestive) heart failure; I21.A1 Myocardial infarction type 2; I16.1 Hypertensive emergency; I27.20 Pulmonary hypertension, unspecified; E78.5 Hyperlipidemia, unspecified; F17.210 Nicotine dependence, cigarettes, uncomplicated; E11.22 Type 2 diabetes mellitus with diabetic chronic kidney disease; N18.9 Chronic kidney disease, unspecified; I42.0 Dilated cardiomyopathy; Z82.49 Family history of ischemic heart disease and other diseases of the circulatory system; Z80.3 Family history of malignant neoplasm of breast; Z83.3 Family history of diabetes mellitus; Z79.82 Long term (current) use of aspirin
CPT/HCPCS: 36415; 70450; 70551; 71045; 73600; 78452; 80048; 80053; 81001; 82607; 82962; 83036; 83735; 83880; 84443; 84484; 85025; 86803; 87340; 93005; 93017; 93306; 93970; 97110; 97163; 97530; 99291; G0378; J0153

== ENCOUNTER 2024-05-01 12:47 | Emergency (ER) | payer MEDICARE, MEDICAID ==
[~2024-05-01] VITALS: Ht 175.3 cm; Wt 66.0 kg
[~2024-05-01 12:47] MED LIST changes: -AMLO1TAB23 PO; +EMPA1TAB PO; +FURO20TA3 PO; -HYDR-4833 PO; -LACT10SO70 PO; -LEVO500T91 PO; -LIDO5DIS21 TOP; -LISI20TA56 PO; -MET500T PO; +METO-289 PO; +SACU1TAB PO; -TAMS0.4C36 PO; +TAMS0.4C39 PO; -TRIA75TA55 PO
--- NOTE | 2024-05-01 13:20 | ED.PDOC ---
History of Present Illness HPI Comments 73M BIBA from [facility] w/ prior Hx of HTN which may be associated to the c/c of HTN. When EMS arrived on scene the nurses on the facility informed EMS that "we gave the pt his medications at 1000 and he was initially over 200 in his BP". When EMS arrived to the ED the pt's BP was 159/82 and the EMS stated "they didn't wait for the medication to kick in". PMHx of CHF, MIx2, DM and High Lipids. SHx of Tonsillectomy. SHx of Tonsillectomy. Denies chills, fever, N/V/D< SOB, CP or no other associated symptom's, modifiers, recent injuries or sick contacts at this time. Chief Complaint: High Blood Pressure Time Seen by MD: 13:00 Primary Care Provider: FRED MAGANA Reviewed Notes: Nurses Notes, Corn Breeder Notes, Medications, Allergies Allergies: Coded Allergies: NO KNOWN ALLERGIES (Unverified , 08/16/19) Home Meds Active Scripts Furosemide (Furosemide) 20 Mg Tab, 1 TAB PO DAILY for 30 Days, #30 TAB 1 Refill Prov:TERRELL JaimesDORETHA RESIDENT 09/29/23 Empagliflozin (Jardiance) 10 Mg Tab, 10 MG PO DAILY for 30 Days, #30 TAB Prov:TERRELL JaimesDORETHA RESIDENT 09/29/23 Metoprolol Succinate (Metoprolol Succinate Er) 50 Mg Tab, 1 TAB PO DAILY for 30 Days, #30 TAB 5 Refills Prov:TERRELL JaimesDORETHA RESIDENT 09/29/23 Sacubitril-Valsartan (Entresto 24-26 mg) 1 Tab Tab, 1 TAB PO BID for 30 Days, #60 TAB Prov:TERRELL JaimesDORETHA RESIDENT 09/29/23 Reported Medications Glucose Blood (BotanoCapuch Ultra) 1 Sandrine Sandrine 11/06/19 Lancets (Lancets 30G) 30 G Mis, TOP 11/06/19 Bupropion Hcl (Bupropion Hcl) 100 Mg Tab, 150 MG PO Q8HR for 30 Days, MG 05/10/19 Pramipexole Dihydrochloride Mo (MIRAPEX TABLET) 0.25 Mg Tb, 0.125 MG PO HS, TAB 05/10/19 Tamsulosin Hcl (Tamsulosin Hcl) 0.4 Mg Cap, 0.4 MG PO QPM for 30 Days, MG 01/19/19 Potassium Chloride (Klor-Con M10) 10 Meq Tab, 1 TAB PO DAILY, #30 TAB 5 Refills 01/19/19 Metformin Hydrochloride (Metformin Hcl) 1,000 Mg Tab, 1 TAB PO BID, #60 TAB 5 Refills 01/19/19 Gabapentin (Gabapentin) 300 Mg Cap, 300 MG PO TID for 30 Days, MG 01/19/19 Atorvastatin Calcium (ATORVASTATIN CALCIUM) 80 Mg Tab, 1 TAB PO HS, #30 TAB 5 Refills 01/19/19 Aspirin (Aspir-Low) 81 Mg Tab, 81 MG PO DAILY for 30 Days, MG 01/19/19 Information Source: Patient, Emergency Med Personnel Mode of Arrival: EMS Severity: Moderate Timing: Hours Duration: Since onset, Hours Prehospital treatment: None Past Medical History PAST MEDICAL HISTORY: CHF, DM, High Lipids, HTN, [place] (x2) Surgical History: Tonsillectomy Family History Family History: Reviewed,noncontributory to illness, Unknown Social History Smoker: Non-Smoker Alcohol: Denies ETOH Use Drugs: Denies Drug Use Lives In: Home Constitutional: reports: others (HTN); denies: chills, diaphoresis, fatigue, fever, malaise, sweats, weakness EENTM: denies: blurred vision, double vision, ear bleeding, ear discharge, ear drainage, ear pain, ear ringing, eye pain, eye redness, hearing loss, mouth pain, mouth swelling, nasal discharge, nose bleeding, nose congestion, nose pain, photophobia, tearing, throat pain, throat swelling, voice changes, others Respiratory: denies: cough, hemoptysis, orthopnea, SOB at rest, shortness of breath, SOB with excertion, stridor, wheezing, others Cardiovascular: denies: chest pain, dizzy spells, diaphoresis, Dyspnea on exertion, edema, irregular heart beat, left arm pain, lightheadedness, palp itations, PND, syncope, others Gastrointestinal: denies: abdomen distended, abdominal pain, blood streaked bowels, constipated, diarrhea, dysphagia, difficulty swallowing, hematemesis, melena, nausea, poor appetite, poor fluid intake, rectal bleeding, rectal pain, vomiting, others Genitourinary: denies: burning, dysuria, flank pain, frequency, hematuria, incontinence, penile discharge, penile sore, pain, testicle pain, testicle swelling, urgency, others Neurological: denies: dizziness, fainting, headache, left sided numbness, left sided weakness, numbness, paresthesia, pre-existing deficit, right sided numbness, right sided weakness, seizure, speech problems, tingling, tremors, weakness, others Musculoskeletal: denies: back pain, gout, joint pain, joint swelling, muscle pain, muscle stiffness, neck pain, others Integumetry: denies: bruises, change in color, change in hair/nails, dryness, laceration, lesions, lumps, rash, wounds, others Allergic/Immunocompromised: denies: Difficulty Healing, Frequent Infections, Hives, Itching, others Hematologic/Lymphatic: denies: anemia, blood clots, easy bleeding, easy brui sing, swollen glands, others Endocrine: denies: excessive hunger, excessive sweating, excessive thirst, ex cessive urination, flushing, intolerance to cold, intolerance to heat, unexplained weight gain, unexplained weight loss, others Psychiatric: denies: anxiety, bipolar disorder, depression, hopeless, panic disorder, schizophrenia, sleepless, suicidal, others All Other Systems: Reviewed and Negative Physical Exam General Appearance: Moderate Distress, Normal HEENT: Normal ENT Inspection, Pharynx Normal, TMs Normal Neck: Full Range of Motion, Non-Tender, Normal, Normal Inspection Respiratory: Chest Non-Tender, Lungs Clear, No Accessory Muscle Use, No Respiratory Distress, Normal Breath Sounds Cardiovascular: No Edema, No JVD, No Murmur, No Gallop, Normal Peripheral Pulses, Regular Rate/Rhythm Breast Exam: Deferred Gastrointestinal: No Organomegaly, Non Tender, No Pulsatile Mass, Normal Bowel Sounds, Soft Genitalia: Deferred Pelvic: Deferred Rectal: Deferred Extremities: No calf tenderness, Normal capillary refill, Normal range of motion, Non-tender, No pedal edema, Other (Moving all extremities no injuries) Musculoskeletal : Apperance: Normal Neurologic: Alert, steel erector II-XII nml as Tested, No Motor Deficits, Normal Affect, Normal Mood, No Sensory Deficits Cerebellar Function: NOT DONE Reflexes: NOT DONE Skin: Dry, Normal Color, Warm Peripheral Pulses: 3+ Radial (R), 3+ Radial (L) Lymphatic: No Adenopathy Was a procedure done? Was a procedure done?: No Differential Dx Considerations may include: Hypertension Anxiety X-Ray, Labs, Meds, VS Vital Signs Date Time Temp Pulse Resp B/P (MAP) Pulse Ox O2 Delivery O2 Flow Rate FiO2 05/01/24 12:54 98.2 60 16 159/82 (107) 95 98.2 Patient alert. States that he is feeling fine. Blood pressure slightly elevated. Vitals stable. Saturation pristine on room air. Denies any symptoms. No injuries. Abdomen is soft nontender. Patient is going home. No leg swelling. No headache. Moving all extremities. Does not meet any criteria. Was told to follow up with his primary care physician. Was told to come back if there is any problem. Time of 1ST Reevaluation: 13:30 Reevaluation 1ST: Unchanged Patient Education/Counseling: Diagnosis, Treatment, Prognosis Family Education/Counseling: No Family Present Departure 1 Departure Time of Disposition: 13:35 Impression: Primary Impression: HTN (hypertension) Qualified Codes: I10 - Essential (primary) hypertension Disposition: 01 HOME / SELF CARE / HOMELESS Condition: Good Discharged With: Self Critical Care Note Critical Care Time?: No Stability Stability form required: No Heart Score Heart Score: Heart Score Response (Comments) Value History N/A 0 EKG N/A 0 Age N/A 0 Risk Factors N/A 0 Troponin N/A 0 Total 0 I personally scribed for ALEX RAYA MD ([email or web address]) on 05/01/24 at 13:20. Electronically submitted by Jamari Stratton ([email or web address]). ALEX RAYA MD May 01, 2024 13:20
[2024-05-01 14:15] VITALS: PULSE 61; RESP 16; O2SAT 98
[2024-05-01] MEDS: cloNIDine HCL 0.1 MG TAB PO ONE (14:17)
[2024-05-01 15:03] VITALS: BP 134/88; PULSE 58; RESP 16; TEMP 98.3; O2SAT 94
== END 2024-05-01 18:37 | disposition home or self-care (01) ==
LOC: EDBD 12:47 → ER 12:47 → EDUNIT# 12:47 → ER 18:36
DX: I10 Essential (primary) hypertension (principal); E11.9 Type 2 diabetes mellitus without complications; E78.5 Hyperlipidemia, unspecified; I11.0 Hypertensive heart disease with heart failure; I50.89 Other heart failure; Z90.49 Acquired absence of other specified parts of digestive tract; Z79.899 Other long term (current) drug therapy; Z79.84 Long term (current) use of oral hypoglycemic drugs